=== PATIENT | male | born 1945 | race Caucasian/White ===

== ENCOUNTER 2019-02-15 10:03 | Inpatient (IN) | payer MEDICARE, BC ==
[~2019-02-15 10:03] MED LIST: Acetaminophen 325 MG Tab PO SCH; Lidocaine 1%/Sod Bicarbonate in NS 8.4% 1 ML Syringe IDERM PRN; Pregabalin 25 MG Cap PO SCH; Sodium Chloride 0.9% 10 ML Syringe FLUSH PRN; oxyCODONE ER 10 MG TAB.ER PO SCH
[2019-02-15] MEDS ORDERED: Propofol 200 MG/20 ML SDV ONE (10:27)
[2019-02-15] MEDS ORDERED: fentaNYL 100 MCG/2 ML SDV ONE ×2 (10:27→13:42)
[2019-02-15] MEDS ORDERED: Midazolam 1 MG/ML 2 ML SDV ONE (10:27)
[2019-02-15] MEDS ORDERED: Dexamethasone 4 MG/ML 5 ML MDV ONE (10:28)
[2019-02-15] MEDS ORDERED: Lidocaine 1% 4 ML ONE (10:28)
[2019-02-15] MEDS ORDERED: Ondansetron 4 MG/2 ML SDV ONE (10:28)
[2019-02-15] MEDS ORDERED: ceFAZolin 1 GM Vial ONE ×2 (10:28→10:49)
[2019-02-15] MEDS ORDERED: Bupivacaine 0.25% 10 ML SDV ONE ×2 (10:49→10:51)
[2019-02-15] MEDS ORDERED: Vancomycin 1 GM SDV ONE (10:49)
[2019-02-15] MEDS ORDERED: Iodine/Sodium Iodide 2% Tincture 30 ML Bottle ONE (10:51)
[2019-02-15] MEDS: Lactated Ringers 1,000 ML IV SCH ×2 (11:25→15:49)
[2019-02-15] MEDS ORDERED: Albuterol 0.083% 2.5 MG/3 ML Neb Soln NEB ONE (11:31)
--- NOTE | 2019-02-15 11:31 | PCM.PREANE ---
Preanesthetic Assessment - Anesthesia/Transfusion/Family Hx Anesthesia History: Prior Anesthesia Without Reaction Family History of Anesthesia Reaction: No - Review of Systems General: No Symptoms Pulmonary: Cough (Cold symptoms starting 10 days ago. Feeling much better. Still clears his throat as needed but has done this for years. ) Cardiovascular: No Symptoms (CT in 97, Stents in 2006 and 2011, Stress test done recently unchanged. EF 57-59%. ) Gastrointestinal: No Symptoms Neurological: No Symptoms (Denies back pain, gets burning to his legs that he uses cream for as needed. ) Other: Reports: None - Physical Assessment NPO Status Date: 02/14/19 NPO Status Time: 19:00 Vital Signs: Last Vital Signs Temp 36.8 C 02/15/19 10:25 Pulse 80 02/15/19 10:25 Resp 16 02/15/19 10:25 BP 183/81 H 02/15/19 10:25 Pulse Ox 97 02/15/19 10:25 Height: 1.83 m Weight: 93.44 kg ASA Class: 3 Mental Status: Alert & Oriented x3 Airway Class: Mallampati = 2 Dentition: Reports: Normal Dentition Thyro-Mental Finger Breadths: 2 Mouth Opening Finger Breadths: 3 ROM/Head Extension: Full Lungs: Clear to Auscultation, Normal Respiratory Effort Cardiovascular: Regular Rate, Regular Rhythm - Lab Values: Laboratory Last Values MRSA (PCR) Negative 02/02/19 15:56 - Imaging/EKG Impressions: Rt. BBB/NSR/Septal Infarct Old 62 bpm - Allergies Allergies/Adverse Reactions: Allergies Allergy/AdvReac Type Severity Reaction Status Date / Time VARSHA Inhibitors Allergy Rash Verified 02/12/19 11:38 sulfamethoxazole Allergy Rash Verified 02/12/19 11:38 [From Bactrim] trimethoprim [From Bactrim] Allergy Rash Verified 02/12/19 11:38 - Anesthesia Plan Pre-Op Medication Ordered: Anxiolytic - Acknowledgements Anesthesia Type Planned: Spinal Pt an Appropriate Candidate for the Planned Anesthesia: Yes Alternatives and Risks of Anesthesia Discussed w Pt/Guardian: Yes Pt/Guardian Understands and Agrees with Anesthesia Plan: Yes PreAnesthesia Questionnaire HEENT History: Reports: Hard of Hearing, Impaired Vision, Other (See Below) Other HEENT History: Bilateral hearing aides Cardiovascular History: Reports: CAD, High Cholesterol, Hypertension, CT, Stents Respiratory History: Reports: None Gastrointestinal History: Reports: Hemorrhoids Genitourinary History: Reports: None Musculoskeletal History: Reports: Arthritis Neurological History: Reports: None Psychiatric History: Reports: None Endocrine/Metabolic History: Reports: None Hematologic History: Reports: None Immunologic History: Reports: None Oncologic (Cancer) History: Reports: None Dermatologic History: Reports: None - Past Surgical History Other Cardiovascular Surgeries/Procedures: Angiogram Respiratory Surgical History: Reports: None GI Surgical History: Reports: Appendectomy, Colonoscopy, Other (See Below) Other GI Surgeries/Procedures: Hemorrhoidectomy Male Surgical History: Reports: None Endocrine Surgical History: Reports: None Neurological Surgical History: Reports: None Musculoskeletal Surgical History: Reports: None Oncologic Surgical History: Reports: None Dermatological Surgical History: Reports: None - SUBSTANCE USE Smoking Status *Q: Former Smoker Tobacco Use Within Last Twelve Months: No Second Hand Smoke Exposure: No Days Per Week of Alcohol Use: 2 Number of Drinks Per Day: 2 Total Drinks Per Week: 4 Recreational Drug Use History: No - HOME MEDS Home Medications: Home Meds Aspirin [Halfprin] 81 mg PO DAILY 02/12/19 [History] Cholecalciferol (Vitamin D3) [Vitamin D3] 5,000 unit PO DAILY 02/12/19 [History] Folic Acid 1 mg PO DAILY 02/12/19 [History] Multivitamin [Multi-Vitamin Daily] 1 tab PO DAILY 02/12/19 [History] Nitroglycerin [Nitrostat] 0.4 mg SL ASDIRECTED PRN 02/12/19 [History] Selenium Sulfide 1 applic TP ASDIRECTED PRN 02/12/19 [History] atorvaSTATin [Lipitor] 40 mg PO BEDTIME 02/12/19 [History] - CURRENT (IN HOUSE) MEDS Current Meds: Current Medications Acetaminophen (Tylenol) 975 mg PO ONETIME [place] Stop: 02/15/19 23:00 Last Admin: 02/15/19 11:22 Dose: 975 mg Hydrocodone Bitart/Acetaminophen ([place] 325-5 Mg) 1 - 2 tab PO Q4H PRN PRN Reason: Pain Aspirin (Ecotrin) 325 mg PO BID [place] Bisacodyl (Dulcolax) 5 mg PO DAILY PRN PRN Reason: Constipation Morphine Sulfate 8 mg/Epinephrine HCl 0.3 mg/Cefuroxime Sodium 750 mg/Ketorolac Tromethamine 30 mg/Sodium Chloride 27.9 ml 0 mg .XX ONETIME ONE Stop: 02/15/19 12:31 Cyclobenzaprine HCl (Flexeril) 5 mg PO BID PRN PRN Reason: Spasms Docusate Sodium (Colace) 100 mg PO BID [place] Famotidine (Pepcid) 20 mg PO Q12H [facility] Lactated Ringer's (Ringers, Lactated) 1,000 mls @ 125 mls/hr IV ASDIRECTED [facility] Stop: 02/15/19 23:00 Cefazolin Sodium/Dextrose 2 gm (/ Premix) 50 mls @ 100 mls/hr IV Q8H [facility] Stop: 02/16/19 03:59 Ketorolac Tromethamine (Toradol) 15 mg IVPUSH Q6H PRN PRN Reason: Pain Lidocaine/Sodium Bicarbonate (Buffered Lidocaine 1% In Ns 8.4%) 0.25 ml IDERM ONETIME PRN PRN Reason: Prior to IV Start Stop: 02/15/19 23:00 Magnesium Hydroxide (Milk Of Magnesia) 30 ml PO BID PRN PRN Reason: Constipation Morphine Sulfate (Morphine) 2 mg IVPUSH Q2H PRN PRN Reason: Breakthrough Pain Naloxone HCl (Narcan) 0.1 mg IVPUSH Q5M PRN PRN Reason: Oversedation Ondansetron HCl (Zofran) 4 mg IVPUSH Q6H PRN PRN Reason: Nausea/Vomiting Oxycodone HCl (Oxycontin) 10 mg PO ONETIME [facility] Stop: 02/15/19 23:00 Last Admin: 02/15/19 11:21 Dose: 10 mg Pregabalin (Lyrica) 50 mg PO ONETIME [facility] Stop: 02/15/19 14:00 Last Admin: 02/15/19 11:22 Dose: 50 mg Senna (Senna) 8.6 mg PO BID PRN PRN Reason: Constipation Sodium Chloride (Saline Flush) 10 ml FLUSH ASDIRECTED PRN PRN Reason: Keep Vein Open Stop: 02/15/19 23:00 Discontinued Medications Bupivacaine HCl (Sensorcaine-Mpf 0.25%) Confirm Administered Dose 30 ml .ROUTE .STK-MED ONE Stop: 02/15/19 10:50 Bupivacaine HCl (Sensorcaine-Mpf 0.25%) Confirm Administered Dose 30 ml .ROUTE .STK-MED ONE Stop: 02/15/19 10:52 Cefazolin Sodium (Ancef) Confirm Administered Dose 2 gm .ROUTE .STK-MED ONE Stop: 02/15/19 10:29 Cefazolin Sodium (Ancef) Confirm Administered Dose 2 gm .ROUTE .STK-MED ONE Stop: 02/15/19 10:50 Dexamethasone (Dexamethasone) Confirm Administered Dose 20 mg .ROUTE .STK-MED ONE Stop: 02/15/19 10:29 Fentanyl (Sublimaze) Confirm Administered Dose 100 mcg .ROUTE .STK-MED ONE Stop: 02/15/19 10:28 Lidocaine HCl (Xylocaine-Mpf 1%) Confirm Administered Dose 4 mls @ as directed .ROUTE .STK-MED ONE Stop: 02/15/19 10:29 Iodine (Iodine 2% Mild Tincture) Confirm Administered Dose 30 ml .ROUTE .STK- MED ONE Stop: 02/15/19 10:52 Midazolam HCl (Versed 1 Mg/Ml) Confirm Administered Dose 2 mg .ROUTE .STK-MED ONE Stop: 02/15/19 10:28 Ondansetron HCl (Zofran) Confirm Administered Dose 4 mg .ROUTE .STK-MED ONE Stop: 02/15/19 10:29 Propofol (Diprivan 20 Ml) Confirm Administered Dose 600 mg .ROUTE .STK-MED ONE Stop: 02/15/19 10:28 Tranexamic Acid (Cyklokapron) Confirm Administered Dose 1,000 mg .ROUTE .STK- MED ONE Stop: 02/15/19 10:50 Vancomycin HCl (Vancomycin) Confirm Administered Dose 1 gm .ROUTE .STK-MED ONE Stop: 02/15/19 10:50
[2019-02-15] MEDS ORDERED: Morphine 8 MG, EPINEPHrine 0.3 MG, Cefuroxime 750 MG, Ketorolac 30 MG, Sodium Chloride ... ONE ×5 (12:30)
--- NOTE | 2019-02-15 12:46 | PCM.CONS ---
H&P History of Present Illness - General Date of Service: 02/15/19 Admit Problem/Dx: Admission Diagnosis/Problem Admission Diagnosis/Problem Osteoarthritis of hip Source of Information: Patient, Old Records, Provider, RN, RN Notes Reviewed History Limitations: Reports: No Limitations - History of Present Illness Initial Comments - Free Text/Narative: Smith Caceres is a 73 yo male patient of Dr. Humphrey who is post-operative day 0 of right YESSY. Hospital medicine was consulted for post-operative medical care of the following listed medical conditions. At this time he is resting comfortably in bed. Pain is controlled. He denies any chest pain, shortness of breath, palpitations, nausea, or vomiting. He carries a history of: CAD with stent placement, HLD, HTN, chronic low back pain, prior myocardial infarction, hemorrhoids, arthritis. He is a former smoker. He is a full code. His primary care provider is Dr. Zapata. Right Hip Pain Score (Numeric/FACES): 2 - Related Data Allergies/Adverse Reactions: Allergies Allergy/AdvReac Type Severity Reaction Status Date / Time VARSHA Inhibitors Allergy Rash Verified 02/12/19 11:38 sulfamethoxazole Allergy Rash Verified 02/12/19 11:38 [From Bactrim] trimethoprim [From Bactrim] Allergy Rash Verified 02/12/19 11:38 Home Medications: Home Meds Aspirin [Halfprin] 81 mg PO DAILY 02/12/19 [History] Cholecalciferol (Vitamin D3) [Vitamin D3] 5,000 unit PO DAILY 02/12/19 [History] Folic Acid 1 mg PO DAILY 02/12/19 [History] Multivitamin [Multi-Vitamin Daily] 1 tab PO DAILY 02/12/19 [History] Nitroglycerin [Nitrostat] 0.4 mg SL ASDIRECTED PRN 02/12/19 [History] Selenium Sulfide 1 applic TP ASDIRECTED PRN 02/12/19 [History] atorvaSTATin [Lipitor] 40 mg PO BEDTIME 02/12/19 [History] Past Medical History HEENT History: Reports: Hard of Hearing, Impaired Vision, Other (See Below) Other HEENT History: Bilateral hearing aides Cardiovascular History: Reports: CAD, High Cholesterol, Hypertension, [place], Stents Respiratory History: Reports: None Gastrointestinal History: Reports: Hemorrhoids Genitourinary History: Reports: None Musculoskeletal History: Reports: Arthritis Other Musculoskeletal History: Lumbar back pain Neurological History: Reports: None Psychiatric History: Reports: None Endocrine/Metabolic History: Reports: None Hematologic History: Reports: None Immunologic History: Reports: None Oncologic (Cancer) History: Reports: None Dermatologic History: Reports: None - Past Surgical History Other Cardiovascular Surgeries/Procedures: Angiogram Respiratory Surgical History: Reports: None GI Surgical History: Reports: Appendectomy, Colonoscopy, Other (See Below) Other GI Surgeries/Procedures: Hemorrhoidectomy Male Surgical History: Reports: None Endocrine Surgical History: Reports: None Neurological Surgical History: Reports: None Musculoskeletal Surgical History: Reports: None Oncologic Surgical History: Reports: None Dermatological Surgical History: Reports: None Social & Family History - Tobacco Use Smoking Status *Q: Former Smoker Used Tobacco, but Quit: Yes Month/Year Tobacco Last Used: 30 years ago Second Hand Smoke Exposure: No - Caffeine Use Caffeine Use: Reports: Coffee, Soda - Alcohol Use Days Per Week of Alcohol Use: 2 Number of Drinks Per Day: 2 Total Drinks Per Week: 4 - Recreational Drug Use Recreational Drug Use: No Drug Use in Last 12 Months: No H&P Review of Systems - Review of Systems: Review Of Systems: See Below General: Reports: No Symptoms. Denies: Fever, Chills HEENT: Reports: No Symptoms. Denies: Headaches, Sore Throat Pulmonary: Reports: No Symptoms. Denies: Shortness of Breath, Wheezing, Pleuritic Chest Pain, Cough, Sputum Cardiovascular: Reports: No Symptoms. Denies: Chest Pain, Palpitations, Edema, Lightheadedness Gastrointestinal: Reports: No Symptoms. Denies: Abdominal Pain, Constipation, Diarrhea, Nausea, Vomiting Genitourinary: Reports: No Symptoms. Denies: Pain Musculoskeletal: Reports: Leg Pain Skin: Reports: No Symptoms. Denies: Cyanosis Psychiatric: Reports: No Symptoms. Denies: Confusion Neurological: Reports: No Symptoms Hematologic/Lymphatic: Reports: No Symptoms Immunologic: Reports: No Symptoms Exam - Exam Exam: See Below - Vital Signs Vital Signs: Last Vital Signs Temp 98.3 F 02/15/19 10:25 Pulse 80 02/15/19 10:25 Resp 16 02/15/19 10:25 BP 183/81 H 02/15/19 10:25 Pulse Ox 97 02/15/19 10:25 Weight: 206 lb - Exam Quality Assessment: DVT Prophylaxis General: Alert, Oriented, Cooperative. No: Mild Distress HEENT: Conjunctiva Clear, EACs Clear, EOMI, Hearing Intact, Mucosa Moist & [place] , Nares Patent, Posterior Pharynx Clear, Pupils Equal, Pupils Reactive Neck: Supple, Trachea Midline Lungs: Clear to Auscultation, Normal Respiratory Effort Cardiovascular: Regular Rate, Regular Rhythm GI/Abdominal Exam: Normal Bowel Sounds, Soft, Non-Tender, No Distention, No Abnormal Bruit (Male) Exam: Deferred Rectal (Males) Exam: Deferred Back Exam: Normal Inspection, Full Range of Motion Extremities: No Pedal Edema, Normal Capillary Refill, Leg Pain, Limited Range of Motion, Other (Bandage in place on right leg. Bandage is dry and intact. Cooling pack in place. ) Peripheral Pulses: 3+: Radial (L), Radial (R), Dorsalis Pedis (L), Dorsalis Pedis (R) Skin: Warm, Dry, Intact Neurological: Cranial Nerves Intact (grossly) Neuro Extensive - Mental Status: Alert, Oriented x3, Normal Mood/Affect Psychiatric: Alert, Normal Affect, Normal Mood Consult PN Assessment/Plan POD#: 0 Procedures: Procedures DRAIN/INJ JOINT/BURSA W/O US (08/28/18) US EXAM ABDO BACK WALL COMP (07/01/18) (1) S/P total hip arthroplasty SNOMED Code(s): 226687612729, 822179446079 Code(s): Z96.649 - PRESENCE OF UNSPECIFIED ARTIFICIAL HIP JOINT Priority: High Current Visit: Yes Qualifiers: Laterality: right Qualified Code(s): Z96.641 - Presence of right artificial hip joint (2) Osteoarthritis SNOMED Code(s): 732701331 Code(s): M19.90 - UNSPECIFIED OSTEOARTHRITIS, UNSPECIFIED SITE Priority: High Current Visit: Yes Qualifiers: Osteoarthritis location: hip Osteoarthritis type: primary Laterality: right Qualified Code(s): M16.11 - Unilateral primary osteoarthritis, right hip (3) CAD (coronary artery disease) SNOMED Code(s): 09810997 Code(s): I25.10 - ATHSCL HEART DISEASE OF [place] CORONARY ARTERY W/O ANG PCTRS Priority: Medium Current Visit: No Qualifiers: Coronary Disease-Associated Artery/Lesion type: unspecified vessel or lesion type [place] vs. transplanted heart: [place] heart Associated angina: angina presence unspecified Qualified Code(s): I25.10 - Atherosclerotic heart disease of [place] coronary artery without angina pectoris (4) History of [place] (myocardial infarction) SNOMED Code(s): 328105921 Code(s): I25.2 - OLD MYOCARDIAL INFARCTION Priority: Medium Current Visit : No (5) HLD (hyperlipidemia) SNOMED Code(s): 91946580 Code(s): E78.5 - HYPERLIPIDEMIA, UNSPECIFIED Priority: Low Current Visit : No Qualifiers: Hyperlipidemia type: unspecified Qualified Code(s): E78.5 - Hyperlipidemia , unspecified (6) HTN (hypertension) SNOMED Code(s): 18250215 Code(s): I10 - ESSENTIAL (PRIMARY) HYPERTENSION Priority: Medium Current Visit: No Qualifiers: Hypertension type: unspecified Qualified Code(s): I10 - Essential (primary ) hypertension (7) Low back pain SNOMED Code(s): 951159959 Code(s): M54.5 - LOW BACK PAIN Priority: Low Current Visit: No Qualifiers: Chronicity: chronic Back pain laterality: unspecified Sciatica laterality : sciatica laterality unspecified Problem List Initiated/Reviewed/Updated: Yes Plan: I/P: Acute: S/P right total hip arthroplasty - post-operative day 0 -DVT prophylaxis and pain management per primary care team -PT/OT -IS/RT -Monitor oxygen saturation -Titrate oxygen as needed -Home medications reviewed -Vital signs stable -Monitor labs -Pre-operative Hgb was 14.9 -Pre-operative GFR was 74 -Negative stress test on 02/10/19 Osteoarthritis of right hip -Pain management per primary care team Post-operative HTN -Reported in post-op -Improved once on floor -Continue to monitor -Reports borderline HTN in past Chronic: CAD with stent placement HLD HTN chronic low back pain prior myocardial infarction hemorrhoids arthritis Plan: CM for discharge planning GI prophylaxis Home medications as indicated Other orders as listed above Routine AM labs He is a full code. His PCP is Dr. Zapata Thank you for allowing us to participate in the care of this patient!! Requesting Provider: Dr. Humphrey Date Consult Requested: 02/15/19 Patient History Reviewed: Yes Admission H&P Reviewed: Yes Time Spent (in minutes): 40
[2019-02-15] MEDS ORDERED: Acetaminophen/HYDROcodone 325-5 MG Tab PO PRN (13:00)
[2019-02-15] MEDS ORDERED: Morphine 2 MG/ML Syringe IVPUSH PRN (13:00)
[2019-02-15] MEDS ORDERED: Cyclobenzaprine 10 MG Tab PO PRN (13:00)
[2019-02-15] MEDS ORDERED: Ondansetron 4 MG/2 ML SDV IVPUSH PRN ×2 (13:00→13:58)
[2019-02-15] MEDS ORDERED: Ketorolac 15 MG/ML SDV IVPUSH PRN (13:00)
[2019-02-15] MEDS ORDERED: Sennosides 8.6 MG Tab PO PRN (13:00)
[2019-02-15] MEDS ORDERED: Bisacodyl 5 MG Tab PO PRN (13:00)
[2019-02-15] MEDS ORDERED: Naloxone 0.4 MG/ML SDV IVPUSH PRN (13:00)
[2019-02-15] MEDS ORDERED: Magnesium Hydroxide 400 MG/5 ML Susp 30 ML Cup PO PRN (13:00)
[2019-02-15] MEDS ORDERED: Lactated Ringers 1,000 ML ONE (13:09)
[2019-02-15] MEDS ORDERED: Lidocaine 1% 2 ML ONE (13:10)
[2019-02-15] MEDS ORDERED: Rocuronium 50 MG/5 ML Vial ONE (13:10)
[2019-02-15] MEDS ORDERED: Ketamine 500 mg/10 ML MDV ONE (13:20)
[2019-02-15] MEDS ORDERED: ePHEDrine/Normal Saline 25 MG/5 ML Syringe ONE (13:27)
[2019-02-15] MEDS ORDERED: HYDROmorphone 0.5 MG/0.5 ML Syringe IVPUSH PRN (13:58)
[2019-02-15] MEDS ORDERED: fentaNYL 100 MCG/2 ML SDV IVPUSH PRN (13:58)
[2019-02-15] MEDS ORDERED: Phenylephrine/Normal Saline 100 MCG/ML 10 ML Syringe ONE (14:00)
[2019-02-15] MEDS ORDERED: Neostigmine Methylsulfate 1 MG/ML 5 ML Syringe ONE (14:00)
[2019-02-15] MEDS ORDERED: Ketorolac 30 MG/ML SDV ONE (14:00)
[2019-02-15] MEDS ORDERED: Esmolol 100 MG/10 ML SDV ONE (14:32)
[2019-02-15] MEDS ORDERED: Nitroglycerin 0.4 MG Tab.SL SL PRN (14:35)
[2019-02-15] MEDS ORDERED: SELENIUM SULFIDE TP PRN (14:35)
--- NOTE | 2019-02-15 14:59 | PCM.POSTAN ---
POST ANESTHESIA ASSESSMENT - MENTAL STATUS Mental Status: Alert, Oriented - VITAL SIGNS Vital Signs: Last Vital Signs 1446 181/88 82 10 100% 98.8F - RESPIRATORY Respiratory Status: Respiratory Rate WNL, Airway Patent, O2 Saturation Stable, Supplemental Oxygen - CARDIOVASCULAR CV Status: Pulse Rate WNL, Blood Pressure Stable - GASTROINTESTINAL GI Status: No Symptoms - PAIN Pain Score: 0 - POST OP HYDRATION Hydration Status: Adequate & Stable
--- NOTE | 2019-02-15 16:46 | CR ---
Pelvis and right hip: AP view of the pelvis was obtained as well as frog-leg lateral view of the right hip. Comparison: No previous hip or pelvis study. Soft tissue air is noted around recently placed right hip prosthesis. Mild degenerative change is partially seen within the visualized lower lumbar spine. Moderate joint space narrowing is seen superiorly within the left hip. No acute bony abnormality is seen. Impression: 1. Recently placed right hip prosthesis. 2. Other findings as noted above which are nonacute. Diagnostic code #2
[2019-02-15] MEDS ORDERED: Rosuvastatin 10 MG Tab PO SCH (21:00)
[2019-02-15] MEDS: ceFAZolin 2 GM in Premix Bag 1 BAG IV SCH (21:02)
[2019-02-15] MEDS: Famotidine 20 MG Tab PO SCH (21:09)
[2019-02-15] MEDS: Docusate Sodium 100 MG Cap PO SCH (21:09)
[2019-02-16] MEDS: ceFAZolin 2 GM in Premix Bag 1 BAG IV SCH ×2 (04:28→12:34)
--- NOTE | 2019-02-16 06:40 | PCM.CONSN ---
- General Info Date of Service: 02/16/19 Admission Dx/Problem (Free Text): Admission Diagnosis/Problem Admission Diagnosis/Problem Osteoarthritis of hip Functional Status: Reports: Pain Controlled, Tolerating Diet, Ambulating, Urinating, Incentive Spirometry. Denies: New Symptoms - Review of Systems General: Reports: No Symptoms. Denies: Fever, Weakness, Fatigue, Malaise, Chills HEENT: Reports: No Symptoms. Denies: Headaches, Sore Throat Pulmonary: Reports: No Symptoms. Denies: Shortness of Breath, Cough, Sputum, Wheezing Cardiovascular: Reports: No Symptoms. Denies: Chest Pain, Palpitations Gastrointestinal: Reports: No Symptoms. Denies: Abdominal Pain, Constipation, Diarrhea, Nausea, Vomiting Genitourinary: Reports: No Symptoms. Denies: Pain Musculoskeletal: Reports: Leg Pain Skin: Reports: No Symptoms. Denies: Cyanosis Neurological: Reports: No Symptoms. Denies: Confusion Psychiatric: Reports: No Symptoms - Patient Data Vitals - Most Recent: Last Vital Signs Temp 98.2 F 02/16/19 04:04 Pulse 78 02/16/19 04:04 Resp 16 02/16/19 04:04 BP 126/60 02/16/19 04:04 Pulse Ox 99 02/16/19 04:04 Weight - Most Recent: 213 lb 9 oz I&O - Last 24 Hours: Intake & Output 02/15/19 02/15/19 02/16/19 14:59 22:59 06:59 Intake Total 700 1400 Output Total 400 Balance 300 1400 Lab Results Last 24 Hours: Laboratory Results - last 24 hr 02/15/19 02/16/19 02/16/19 Range/Units 11:26 05:00 05:00 WBC 18.08 H (4.23-9.07) K/mm3 RBC 3.93 L (4.63-6.08) M/mm3 Hgb 11.8 L (13.7-17.5) gm/dl Hct 36.5 L (40.1-51.0) % MCV 92.9 H (79.0-92.2) fl MCH 30.0 (25.7-32.2) pg MCHC 32.3 (32.2-35.5) g/dl RDW Std Deviation 45.1 H (35.1-43.9) fL Plt Count 218 (163-337) K/mm3 MPV 10.2 (9.4-12.3) fl Sodium 137 (136-145) mEq/L Potassium 4.3 (3.5-5.1) mEq/L Chloride 103 (98-107) mEq/L Carbon Dioxide 26 (21-32) mEq/L Anion Gap 12.3 (5-15) BUN 25 H (7-18) mg/dL Creatinine 1.4 H (0.7-1.3) mg/dL Est Cr Clr Drug Dosing 50.81 mL/min Estimated GFR (MDRD) 50 (>60) mL/min BUN/Creatinine Ratio 17.9 (14-18) Glucose 167 H (83-115) mg/dL Calcium 8.7 (8.5-10.1) mg/dL Total Bilirubin 0.8 (0.2-1.0) mg/dL AST 31 (15-37) U/L ALT 32 (16-63) U/L Alkaline Phosphatase 78 (46-116) U/L Total Protein 6.3 L (6.4-8.2) g/dl Albumin 3.4 (3.4-5.0) g/dl Globulin 2.9 gm/dL Albumin/Globulin Ratio 1.2 (1-2) Blood Type B POSITIVE Gel Antibody Screen Negative Med Orders - Current: Current Medications Hydrocodone Bitart/Acetaminophen ([place] 325-5 Mg) 1 - 2 tab PO Q4H PRN PRN Reason: Pain Last Admin: 02/16/19 04:26 Dose: 2 tab Aspirin (Ecotrin) 325 mg PO BID [facility] Bisacodyl (Dulcolax) 5 mg PO DAILY PRN PRN Reason: Constipation Cholecalciferol (Vitamin D3) 5,000 unit PO DAILY [facility] Cyclobenzaprine HCl (Flexeril) 5 mg PO BID PRN PRN Reason: Spasms Last Admin: 02/15/19 21:08 Dose: 5 mg Docusate Sodium (Colace) 100 mg PO BID [facility] Last Admin: 02/15/19 21:09 Dose: 100 mg Famotidine (Pepcid) 20 mg PO Q12H [facility] Last Admin: 02/15/19 21:09 Dose: 20 mg Folic Acid (Folic Acid) 1 mg PO DAILY [facility] Cefazolin Sodium/Dextrose 2 gm (/ Premix) 50 mls @ 100 mls/hr IV Q8H [facility] Stop: 02/16/19 12:29 Last Admin: 02/16/19 04:28 Dose: 100 mls/hr Ketorolac Tromethamine (Toradol) 15 mg IVPUSH Q6H PRN PRN Reason: Pain Last Admin: 02/15/19 21:10 Dose: 15 mg Magnesium Hydroxide (Milk Of Magnesia) 30 ml PO BID PRN PRN Reason: Constipation Morphine Sulfate (Morphine) 2 mg IVPUSH Q2H PRN PRN Reason: Breakthrough Pain Multivitamins (Thera) 1 each PO DAILY [facility] Naloxone HCl (Narcan) 0.1 mg IVPUSH Q5M PRN PRN Reason: Oversedation Nitroglycerin (Nitrostat) 0.4 mg SL ASDIRECTED PRN PRN Reason: Chest Pain Ondansetron HCl (Zofran) 4 mg IVPUSH Q6H PRN PRN Reason: Nausea/Vomiting Rosuvastatin Calcium (Crestor) 10 mg PO BEDTIME [facility] Last Admin: 02/15/19 21:08 Dose: 10 mg Senna (Senna) 8.6 mg PO BID PRN PRN Reason: Constipation Discontinued Medications Acetaminophen (Tylenol) 975 mg PO ONETIME [facility] Stop: 02/15/19 23:00 Last Admin: 02/15/19 11:22 Dose: 975 mg Albuterol (Proventil Neb Soln) 2.5 mg NEB ONETIME ONE Stop: 02/15/19 11:32 Last Admin: 02/15/19 15:51 Dose: Not Given Bupivacaine HCl (Sensorcaine-Mpf 0.25%) Confirm Administered Dose 30 ml .ROUTE .STK-MED ONE Stop: 02/15/19 10:50 Last Admin: 02/15/19 14:16 Dose: 30 ml Bupivacaine HCl (Sensorcaine-Mpf 0.25%) Confirm Administered Dose 30 ml .ROUTE .STK-MED ONE Stop: 02/15/19 10:52 Cefazolin Sodium (Ancef) Confirm Administered Dose 2 gm .ROUTE .STK-MED ONE Stop: 02/15/19 10:29 Last Admin: 02/15/19 14:13 Dose: 2 gm Cefazolin Sodium (Ancef) Confirm Administered Dose 2 gm .ROUTE .STK-MED ONE Stop: 02/15/19 10:50 Morphine Sulfate 8 mg/Epinephrine HCl 0.3 mg/Cefuroxime Sodium 750 mg/Ketorolac Tromethamine 30 mg/Sodium Chloride 27.9 ml 0 mg .XX ONETIME ONE Stop: 02/15/19 12:31 Last Admin: 02/15/19 14:14 Dose: 788.3 mg Dexamethasone (Dexamethasone) Confirm Administered Dose 20 mg .ROUTE .STK-MED ONE Stop: 02/15/19 10:29 Ephedrine Sulfate (Ephedrine In Ns) Confirm Administered Dose 25 mg .ROUTE .STK- MED ONE Stop: 02/15/19 13:28 Esmolol HCl (Esmolol) Confirm Administered Dose 100 mg .ROUTE .STK-MED ONE Stop: 02/15/19 14:33 Fentanyl (Sublimaze) Confirm Administered Dose 100 mcg .ROUTE .STK-MED ONE Stop: 02/15/19 10:28 Fentanyl (Sublimaze) Confirm Administered Dose 100 mcg .ROUTE .STK-MED ONE Stop: 02/15/19 13:43 Fentanyl (Sublimaze) 50 mcg IVPUSH Q5M PRN PRN Reason: Pain Stop: 02/15/19 16:00 Glycopyrrolate () Confirm Administered Dose 1 mg .ROUTE .STK-MED ONE Stop: 02/15/19 14:01 Hydromorphone HCl (Dilaudid) 0.5 mg IVPUSH Q10M PRN PRN Reason: Pain (severe 7-10) Stop: 02/15/19 16:00 Lactated Ringer's (Ringers, Lactated) 1,000 mls @ 125 mls/hr IV ASDIRECTED [place] Stop: 02/15/19 23:00 Last Admin: 02/15/19 15:49 Dose: 125 mls/hr Lidocaine HCl (Xylocaine-Mpf 1%) Confirm Administered Dose 4 mls @ as directed .ROUTE .STK-MED ONE Stop: 02/15/19 10:29 Lactated Ringer's (Ringers, Lactated) Confirm Administered Dose 1,000 mls @ as directed .ROUTE .STK-MED ONE Stop: 02/15/19 13:10 Lidocaine HCl (Xylocaine-Mpf 1%) Confirm Administered Dose 2 mls @ as directed .ROUTE .STK-MED ONE Stop: 02/15/19 13:11 Iodine (Iodine 2% Mild Tincture) Confirm Administered Dose 30 ml .ROUTE .STK- MED ONE Stop: 02/15/19 10:52 Last Admin: 02/15/19 14:10 Dose: 18 ml Ketamine HCl (Ketalar) Confirm Administered Dose 500 mg .ROUTE .STK-MED ONE Stop: 02/15/19 13:21 Ketorolac Tromethamine (Toradol) Confirm Administered Dose 30 mg .ROUTE .STK- MED ONE Stop: 02/15/19 14:01 Lidocaine/Sodium Bicarbonate (Buffered Lidocaine 1% In Ns 8.4%) 0.25 ml IDERM ONETIME PRN PRN Reason: Prior to IV Start Stop: 02/15/19 23:00 Last Admin: 02/15/19 11:25 Dose: 0.25 ml Midazolam HCl (Versed 1 Mg/Ml) Confirm Administered Dose 2 mg .ROUTE .STK-MED ONE Stop: 02/15/19 10:28 Neostigmine Methylsulfate (Neostigmine) Confirm Administered Dose 5 mg .ROUTE .STK-MED ONE Stop: 02/15/19 14:01 Non-Formulary Medication (Selenium Sulfide [Selenium Sulfide]) 1 applic TP ASDIRECTED PRN PRN Reason: Dry Scalp Ondansetron HCl (Zofran) Confirm Administered Dose 4 mg .ROUTE .STK-MED ONE Stop: 02/15/19 10:29 Ondansetron HCl (Zofran) 4 mg IVPUSH ONETIME PRN PRN Reason: Nausea/Vomiting Stop: 02/15/19 16:00 Oxycodone HCl (Oxycontin) 10 mg PO ONETIME [place] Stop: 02/15/19 23:00 Last Admin: 02/15/19 11:21 Dose: 10 mg Phenylephrine HCl (Phenylephrine In Ns 100 Mcg/Ml) Confirm Administered Dose 1 mg .ROUTE .STK-MED ONE Stop: 02/15/19 14:01 Pregabalin (Lyrica) 50 mg PO ONETIME [place] Stop: 02/15/19 14:00 Last Admin: 02/15/19 11:22 Dose: 50 mg Propofol (Diprivan 20 Ml) Confirm Administered Dose 600 mg .ROUTE .STK-MED ONE Stop: 02/15/19 10:28 Rocuronium [place] (Zemuron) Confirm Administered Dose 50 mg .ROUTE .STK-MED ONE Stop: 02/15/19 13:11 Sodium Chloride (Saline Flush) 10 ml FLUSH ASDIRECTED PRN PRN Reason: Keep Vein Open Stop: 02/15/19 23:00 Tranexamic Acid (Cyklokapron) Confirm Administered Dose 1,000 mg .ROUTE .STK- MED ONE Stop: 02/15/19 10:50 Last Admin: 02/15/19 14:16 Dose: 1,000 mg Vancomycin HCl (Vancomycin) Confirm Administered Dose 1 gm .ROUTE .STK-MED ONE Stop: 02/15/19 10:50 Last Admin: 02/15/19 14:16 Dose: 1 gm - Exam Quality Assessment: DVT Prophylaxis General: Alert, Oriented, Cooperative HEENT: Pupils Equal, Pupils Reactive, EOMI, Mucous Membr. Moist/[place] Neck: Supple, Trachea Midline Lungs: Clear to Auscultation, Normal Respiratory Effort Cardiovascular: Regular Rate, Regular Rhythm GI/Abdominal Exam: Normal Bowel Sounds, Soft, Non-Tender, No Organomegaly, No Distention, No Abnormal Bruit (Male) Exam: Deferred Back Exam: Normal Inspection, Full Range of Motion Extremities: No Pedal Edema, Normal Capillary Refill, Leg Pain, Limited Range of Motion, Other (Bandage in place on right leg. Cooling pack in place. ) Peripheral Pulses: 2+: Radial (L), Radial (R), Dorsalis Pedis (L), Dorsalis Pedis (R) Skin: Warm, Dry, Intact Wound/Incisions: Dressing Dry and Intact Neurological: No New Focal Deficit Psy/Mental Status: Alert, Normal Affect, Normal Mood Consult PN Assessment/Plan POD#: 1 Procedures: Procedures DRAIN/INJ JOINT/BURSA W/O US (08/28/18) US EXAM ABDO BACK WALL COMP (07/01/18) (1) S/P total hip arthroplasty SNOMED Code(s): 807804618524, 511332236951 Code(s): Z96.649 - PRESENCE OF UNSPECIFIED ARTIFICIAL HIP JOINT Priority: High Current Visit: Yes Qualifiers: Laterality: right Qualified Code(s): Z96.641 - Presence of right artificial hip joint (2) Osteoarthritis SNOMED Code(s): 374120504 Code(s): M19.90 - UNSPECIFIED OSTEOARTHRITIS, UNSPECIFIED SITE Priority: High Current Visit: Yes Qualifiers: Osteoarthritis location: hip Osteoarthritis type: primary Laterality: right Qualified Code(s): M16.11 - Unilateral primary osteoarthritis, right hip (3) CAD (coronary artery disease) SNOMED Code(s): 84932440 Code(s): I25.10 - ATHSCL HEART DISEASE OF [place] CORONARY ARTERY W/O ANG PCTRS Priority: Medium Current Visit: No Qualifiers: Coronary Disease-Associated Artery/Lesion type: unspecified vessel or lesion type [place] vs. transplanted heart: [place] heart Associated angina: angina presence unspecified Qualified Code(s): I25.10 - Atherosclerotic heart disease of [place] coronary artery without angina pectoris (4) History of PR (myocardial infarction) SNOMED Code(s): 217155724 Code(s): I25.2 - OLD MYOCARDIAL INFARCTION Priority: Medium Current Visit : No (5) HLD (hyperlipidemia) SNOMED Code(s): 93811365 Code(s): E78.5 - HYPERLIPIDEMIA, UNSPECIFIED Priority: Low Current Visit : No Qualifiers: Hyperlipidemia type: unspecified Qualified Code(s): E78.5 - Hyperlipidemia , unspecified (6) HTN (hypertension) SNOMED Code(s): 14479607 Code(s): I10 - ESSENTIAL (PRIMARY) HYPERTENSION Priority: Medium Current Visit: No Qualifiers: Hypertension type: unspecified Qualified Code(s): I10 - Essential (primary ) hypertension (7) Low back pain SNOMED Code(s): 945341485 Code(s): M54.5 - LOW BACK PAIN Priority: Low Current Visit: No Qualifiers: Chronicity: chronic Back pain laterality: unspecified Sciatica laterality : sciatica laterality unspecified (8) Acute kidney injury SNOMED Code(s): 76909598, 22953288 Code(s): N17.9 - ACUTE KIDNEY FAILURE, UNSPECIFIED Priority: High Current Visit: Yes Problem List Initiated/Reviewed/Updated: Yes My Orders Last 24 Hours: My Active Orders 02/15/19 15:57 Patient Status [ADT] Routine 02/15/19 21:00 Rosuvastatin [Crestor] 10 mg PO BEDTIME Plan: I/P: Acute: S/P right total hip arthroplasty - post-operative day 1 -DVT prophylaxis and pain management per primary care team -PT/OT -IS/RT -Monitor oxygen saturation -Titrate oxygen as needed -Home medications reviewed -Vital signs stable -Monitor labs -Pre-operative Hgb was 14.9; Now 11.8 -Pre-operative GFR was 74; Now 50 -Pre-operative creatinine was 0.99 now 1.4 -Negative stress test on 02/10/19 Osteoarthritis of right hip -Pain management per primary care team Post-operative HTN, resolved -Reported in post-op -Improved once on floor -Continue to monitor -Reports borderline HTN in past Acute kidney injury -Creatinine 1.4; GFR 50 -Encouraged to push IV fluids -PCP follow-up end of week, early next week. Chronic: CAD with stent placement HLD HTN chronic low back pain prior myocardial infarction hemorrhoids arthritis Plan: Telemetry CM for discharge planning GI prophylaxis Home medications as indicated Other orders as listed above Routine AM labs He is a full code. His PCP is Dr. Zapata Overall from a hospitalist standpoint Smith is doing pretty well. He has been up ambulating and working with therapies. Pain is controlled. He is off of oxygen and has urinated. He has been utilizing his IS. His creatinine was up a bit today and his GFR was down. Discussed this with Dr. Hartmann who recommends pushing fluids and follow-up with PCP at the end of this week or early next week to re-check a BNP, magnesium, and potassium. He was encouraged to continue IV hydration and avoid coffee, etc. He is cleared for discharge pending primary team and PT/OT agreement. Thank you for allowing us to participate in the care of this patient!!
--- NOTE | 2019-02-16 07:34 | PCM48HPAN ---
Post Anesthesia Note - EVALUATION WITHIN 48HRS OF ANESTHETIC Vital Signs in Normal Range: Yes Patient Participated in Evaluation: Yes Respiratory Function Stable: Yes Airway Patent: Yes Cardiovascular Function Stable: Yes Hydration Status Stable: Yes Pain Control Satisfactory: Yes Nausea and Vomiting Control Satisfactory: Yes Mental Status Recovered: Yes Vital Signs: Last Vital Signs Temp 36.8 C 02/16/19 04:04 Pulse 78 02/16/19 04:04 Resp 16 02/16/19 04:04 BP 126/60 02/16/19 04:04 Pulse Ox 99 02/16/19 04:04 - COMMENTS/OBSERVATIONS Free Text/Narrative:: no anesthesia complications noted
[2019-02-16] MEDS: Famotidine 20 MG Tab PO SCH (08:42)
[2019-02-16] MEDS: Docusate Sodium 100 MG Cap PO SCH (08:43)
[2019-02-16] MEDS ORDERED: Aspirin 325 MG Tab.EC PO SCH (09:00)
[2019-02-16] MEDS ORDERED: Cholecalciferol (Vitamin D3) 5,000 UNIT Tab PO SCH (09:00)
[2019-02-16] MEDS ORDERED: Multivitamins,Therapeutic Tab PO SCH (09:00)
[2019-02-16] MEDS ORDERED: Folic Acid 1 MG Tab PO SCH (09:00)
--- NOTE | 2019-02-16 17:35 | PCM.SURGPN ---
- General Info Date of Service: 02/16/19 POD#: 1 Functional Status: Reports: Pain Controlled, Tolerating Diet, Ambulating, Urinating, Incentive Spirometry, Other (The pt states he is doing well.) - Patient Data Vitals - Most Recent: Last Vital Signs Temp 97.6 F 02/16/19 08:43 Pulse 74 02/16/19 12:00 Resp 20 02/16/19 12:00 BP 139/52 L 02/16/19 12:00 Pulse Ox 99 02/16/19 12:00 Weight - Most Recent: 213 lb 9 oz I&O - Last 24 Hours: Intake & Output 02/16/19 02/16/19 02/16/19 06:59 14:59 22:59 Intake Total 1400 360 Balance 1400 360 Lab Results Last 24 Hrs: Laboratory Results - last 24 hr 02/16/19 02/16/19 Range/Units 05:00 05:00 WBC 18.08 H (4.23-9.07) K/mm3 RBC 3.93 L (4.63-6.08) M/mm3 Hgb 11.8 L (13.7-17.5) gm/dl Hct 36.5 L (40.1-51.0) % MCV 92.9 H (79.0-92.2) fl MCH 30.0 (25.7-32.2) pg MCHC 32.3 (32.2-35.5) g/dl RDW Std Deviation 45.1 H (35.1-43.9) fL Plt Count 218 (163-337) K/mm3 MPV 10.2 (9.4-12.3) fl Sodium 137 (136-145) mEq/L Potassium 4.3 (3.5-5.1) mEq/L Chloride 103 (98-107) mEq/L Carbon Dioxide 26 (21-32) mEq/L Anion Gap 12.3 (5-15) BUN 25 H (7-18) mg/dL Creatinine 1.4 H (0.7-1.3) mg/dL Est Cr Clr Drug Dosing 50.81 mL/min Estimated GFR (MDRD) 50 (>60) mL/min BUN/Creatinine Ratio 17.9 (14-18) Glucose 167 H (83-115) mg/dL Calcium 8.7 (8.5-10.1) mg/dL Total Bilirubin 0.8 (0.2-1.0) mg/dL AST 31 (15-37) U/L ALT 32 (16-63) U/L Alkaline Phosphatase 78 (46-116) U/L Total Protein 6.3 L (6.4-8.2) g/dl Albumin 3.4 (3.4-5.0) g/dl Globulin 2.9 gm/dL Albumin/Globulin Ratio 1.2 (1-2) Med Orders - Current: Current Medications Discontinued Medications Acetaminophen (Tylenol) 975 mg PO ONETIME [facility] Stop: 02/15/19 23:00 Last Admin: 02/15/19 11:22 Dose: 975 mg Hydrocodone Bitart/Acetaminophen ([place] 325-5 Mg) 1 - 2 tab PO Q4H PRN PRN Reason: Pain Last Admin: 02/16/19 04:26 Dose: 2 tab Albuterol (Proventil Neb Soln) 2.5 mg NEB ONETIME ONE Stop: 02/15/19 11:32 Last Admin: 02/15/19 15:51 Dose: Not Given Aspirin (Ecotrin) 325 mg PO BID [facility] Last Admin: 02/16/19 08:42 Dose: 325 mg Bisacodyl (Dulcolax) 5 mg PO DAILY PRN PRN Reason: Constipation Bupivacaine HCl (Sensorcaine-Mpf 0.25%) Confirm Administered Dose 30 ml .ROUTE .STK-MED ONE Stop: 02/15/19 10:50 Last Admin: 02/15/19 14:16 Dose: 30 ml Bupivacaine HCl (Sensorcaine-Mpf 0.25%) Confirm Administered Dose 30 ml .ROUTE .STK-MED ONE Stop: 02/15/19 10:52 Cefazolin Sodium (Ancef) Confirm Administered Dose 2 gm .ROUTE .STK-MED ONE Stop: 02/15/19 10:29 Last Admin: 02/15/19 14:13 Dose: 2 gm Cefazolin Sodium (Ancef) Confirm Administered Dose 2 gm .ROUTE .STK-MED ONE Stop: 02/15/19 10:50 Cholecalciferol (Vitamin D3) 5,000 unit PO DAILY [facility] Last Admin: 02/16/19 08:42 Dose: 5,000 unit Morphine Sulfate 8 mg/Epinephrine HCl 0.3 mg/Cefuroxime Sodium 750 mg/Ketorolac Tromethamine 30 mg/Sodium Chloride 27.9 ml 0 mg .XX ONETIME ONE Stop: 02/15/19 12:31 Last Admin: 02/15/19 14:14 Dose: 788.3 mg Cyclobenzaprine HCl (Flexeril) 5 mg PO BID PRN PRN Reason: Spasms Last Admin: 02/15/19 21:08 Dose: 5 mg Dexamethasone (Dexamethasone) Confirm Administered Dose 20 mg .ROUTE .STK-MED ONE Stop: 02/15/19 10:29 Docusate Sodium (Colace) 100 mg PO BID [facility] Last Admin: 02/16/19 08:43 Dose: 100 mg Ephedrine Sulfate (Ephedrine In Ns) Confirm Administered Dose 25 mg .ROUTE .STK- MED ONE Stop: 02/15/19 13:28 Esmolol HCl (Esmolol) Confirm Administered Dose 100 mg .ROUTE .STK-MED ONE Stop: 02/15/19 14:33 Famotidine (Pepcid) 20 mg PO Q12H [facility] Last Admin: 02/16/19 08:42 Dose: 20 mg Fentanyl (Sublimaze) Confirm Administered Dose 100 mcg .ROUTE .STK-MED ONE Stop: 02/15/19 10:28 Fentanyl (Sublimaze) Confirm Administered Dose 100 mcg .ROUTE .STK-MED ONE Stop: 02/15/19 13:43 Fentanyl (Sublimaze) 50 mcg IVPUSH Q5M PRN PRN Reason: Pain Stop: 02/15/19 16:00 Folic Acid (Folic Acid) 1 mg PO DAILY [facility] Last Admin: 02/16/19 08:42 Dose: 1 mg Glycopyrrolate () Confirm Administered Dose 1 mg .ROUTE .STK-MED ONE Stop: 02/15/19 14:01 Hydromorphone HCl (Dilaudid) 0.5 mg IVPUSH Q10M PRN PRN Reason: Pain (severe 7-10) Stop: 02/15/19 16:00 Lactated Ringer's (Ringers, Lactated) 1,000 mls @ 125 mls/hr IV ASDIRECTED [facility] Stop: 02/15/19 23:00 Last Admin: 02/15/19 15:49 Dose: 125 mls/hr Lidocaine HCl (Xylocaine-Mpf 1%) Confirm Administered Dose 4 mls @ as directed .ROUTE .STK-MED ONE Stop: 02/15/19 10:29 Cefazolin Sodium/Dextrose 2 gm (/ Premix) 50 mls @ 100 mls/hr IV Q8H [place] Stop: 02/16/19 12:29 Last Admin: 02/16/19 12:34 Dose: 100 mls/hr Lactated Ringer's (Ringers, Lactated) Confirm Administered Dose 1,000 mls @ as directed .ROUTE .STK-MED ONE Stop: 02/15/19 13:10 Lidocaine HCl (Xylocaine-Mpf 1%) Confirm Administered Dose 2 mls @ as directed .ROUTE .STK-MED ONE Stop: 02/15/19 13:11 Iodine (Iodine 2% Mild Tincture) Confirm Administered Dose 30 ml .ROUTE .STK- MED ONE Stop: 02/15/19 10:52 Last Admin: 02/15/19 14:10 Dose: 18 ml Ketamine HCl (Ketalar) Confirm Administered Dose 500 mg .ROUTE .STK-MED ONE Stop: 02/15/19 13:21 Ketorolac Tromethamine (Toradol) 15 mg IVPUSH Q6H PRN PRN Reason: Pain Last Admin: 02/15/19 21:10 Dose: 15 mg Ketorolac Tromethamine (Toradol) Confirm Administered Dose 30 mg .ROUTE .STK- MED ONE Stop: 02/15/19 14:01 Lidocaine/Sodium Bicarbonate (Buffered Lidocaine 1% In Ns 8.4%) 0.25 ml IDERM ONETIME PRN PRN Reason: Prior to IV Start Stop: 02/15/19 23:00 Last Admin: 02/15/19 11:25 Dose: 0.25 ml Magnesium Hydroxide (Milk Of Magnesia) 30 ml PO BID PRN PRN Reason: Constipation Midazolam HCl (Versed 1 Mg/Ml) Confirm Administered Dose 2 mg .ROUTE .STK-MED ONE Stop: 02/15/19 10:28 Morphine Sulfate (Morphine) 2 mg IVPUSH Q2H PRN PRN Reason: Breakthrough Pain Multivitamins (Thera) 1 each PO DAILY [place] Last Admin: 02/16/19 08:43 Dose: 1 each Naloxone HCl (Narcan) 0.1 mg IVPUSH Q5M PRN PRN Reason: Oversedation Neostigmine Methylsulfate (Neostigmine) Confirm Administered Dose 5 mg .ROUTE .STK-MED ONE Stop: 02/15/19 14:01 Nitroglycerin (Nitrostat) 0.4 mg SL ASDIRECTED PRN PRN Reason: Chest Pain Non-Formulary Medication (Selenium Sulfide [Selenium Sulfide]) 1 applic TP ASDIRECTED PRN PRN Reason: Dry Scalp Ondansetron HCl (Zofran) Confirm Administered Dose 4 mg .ROUTE .STK-MED ONE Stop: 02/15/19 10:29 Ondansetron HCl (Zofran) 4 mg IVPUSH Q6H PRN PRN Reason: Nausea/Vomiting Ondansetron HCl (Zofran) 4 mg IVPUSH ONETIME PRN PRN Reason: Nausea/Vomiting Stop: 02/15/19 16:00 Oxycodone HCl (Oxycontin) 10 mg PO ONETIME [place] Stop: 02/15/19 23:00 Last Admin: 02/15/19 11:21 Dose: 10 mg Phenylephrine HCl (Phenylephrine In Ns 100 Mcg/Ml) Confirm Administered Dose 1 mg .ROUTE .STK-MED ONE Stop: 02/15/19 14:01 Pregabalin (Lyrica) 50 mg PO ONETIME [place] Stop: 02/15/19 14:00 Last Admin: 02/15/19 11:22 Dose: 50 mg Propofol (Diprivan 20 Ml) Confirm Administered Dose 600 mg .ROUTE .STK-MED ONE Stop: 02/15/19 10:28 Rocuronium [place] (Zemuron) Confirm Administered Dose 50 mg .ROUTE .STK-MED ONE Stop: 02/15/19 13:11 Rosuvastatin Calcium (Crestor) 10 mg PO BEDTIME [place] Last Admin: 02/15/19 21:08 Dose: 10 mg Senna (Senna) 8.6 mg PO BID PRN PRN Reason: Constipation Sodium Chloride (Saline Flush) 10 ml FLUSH ASDIRECTED PRN PRN Reason: Keep Vein Open Stop: 02/15/19 23:00 Tranexamic Acid (Cyklokapron) Confirm Administered Dose 1,000 mg .ROUTE .STK- MED ONE Stop: 02/15/19 10:50 Last Admin: 02/15/19 14:16 Dose: 1,000 mg Vancomycin HCl (Vancomycin) Confirm Administered Dose 1 gm .ROUTE .STK-MED ONE Stop: 02/15/19 10:50 Last Admin: 02/15/19 14:16 Dose: 1 gm - Exam Wound/Incisions: Dressing Dry and Intact General: Alert, Cooperative, No Acute Distress Lungs: Normal Respiratory Effort Extremities: Other (NVS intact for BLE. Sean's negative. Right thigh soft.) - Problem List Review Problem List Initiated/Reviewed/Updated: Yes - My Orders Last 24 Hours: Active Orders 24 hr Category Date Time Status Ready for Discharge [RC] PER UNIT ROUTINE Care 02/16/19 08:34 Active - Assessment Assessment (Free Text/Narrative):: POD#1 -right YESSY - Plan Plan (Free Text/Narrative):: 1. Hgb 11.8. 2. 325mg ASA PO BID, frequent mobility, TEDs. 3. YESSY precautions. 4. Discharge to home today if cleared by Hospitalist service. Dr. Humphrey also evaluated the pt today.
--- NOTE | 2019-02-17 20:03 | PCM.DCSUM1 ---
Discharge Summary - Hospital Course Brief History: Smith is a 73 yo male who underwent right YESSY with Dr. Humphrey on 02-15-2019. The procedure was completed under general anesthesia. The pt tolerated the procedure well and was admitted to the Medical-Surgical Unit. Medical management was provided by the Hospitalist service. The pt's Hospital course was uneventful. The pt's Hgb on POD#1 was 11.8. On POD#1, 325mg ASA BID was initiated for VTE prophylaxis. SCDs and TEDs were also ordered. A Mepilex dressing was placed at the incision site at the time of surgery and remained clean and dry. The pt participated in P.T. and O.T. and progressed well. He followed the YESSY precautions. The pt was allowed to WBAT. On POD#1, the pt was deemed appropriate to discharge to home with his family. - Discharge Data Discharge Date: 02/16/19 Discharge Disposition: Home, Self-Care 01 Condition: Good - Referral to Home Health Primary Care Physician: Jazz Contreras MD - Patient Summary/Data Consults: Consultations 02/15/19 11:15 OT Evaluation and Treatment [CONS] Routine PT Evaluation and Treatment [CONS] Routine 02/15/19 11:17 Consult to Physician [CONS] Routine - Patient Instructions Diet: Usual Diet as Tolerated Activity: Apply Ice, No Strenuous Activities, Partial Weight Bearing Activity, Other: Follow the total hip precautions. Driving: Do Not Drive Showering/Bathing: May Shower Wound/Incision Care: Keep Operative Site/Wound Site Clean and Dry, Do NOT Change Dressing Notify Provider of: Fever, Increased Pain, Swelling and Redness, Drainage, Nausea and/or Vomiting Other/Special Instructions: Please get up and moving around EVERY HOUR while awake. This helps to prevent blood clots. Please use your walker and have help with mobility as needed. Take a short walk in your home every hour while awake. Please take 325mg aspirin TWICE daily. The aspirin is being used for blood clot prevention and not for pain management so please do not miss a dose of the medication. Please do not use the 81mg aspirin while taking the 325mg aspirin twice daily. When the 325mg aspirin twice daily course is complete, you may return to use of the 81mg aspirin daily. You could use a medication like Pepcid and a medication like Prilosec or Nexium to protect your stomach while you are using the aspirin. At home, please complete the exercises that you learned during the Hospital stay. Schedule for physical therapy. Use the pain medication as needed. The medication may cause drowsiness and constipation. Contact your primary care provider for instructions if you are constipated. You may use a stool softener like docusate sodium or Colace 100mg twice daily and/or a laxative like Miralax daily for constipation. Increase your water and fiber intake while you are using the pain medication. Discontinue use of the pain medication as soon as able. Please do not use other medications that may cause drowsiness (other pain medications, anxiety pills, cold medications, sleeping pills, etc) while using the prescription pain medication. Do not use alcohol while using the pain medication. You may use acetaminophen or Tylenol for pain management, however, please ensure you are not using over 4000 mg or 4 grams of acetaminophen per day from all sources. Your pain medication has 325mg of acetaminophen per tablet. At this time, please do not use ibuprofen (Motrin, Advil) or naproxen (Aleve) for pain management as you are using the aspirin. When the aspirin course is completed in 5 weeks, you could use ibuprofen or naproxen for pain management (if this is allowed by your primary care provider). Wear the AMY hose during the day and you may remove these at night. Elevate the limb to decrease swelling. Place ice to the area often. Place a towel between your skin and the blue pad. Use the incentive spirometer often. Take deep breaths throughout the day. Please keep the dressing in place until follow-up. Notify the Clinic if the dressing becomes saturated. Increase your protein intake while you are healing. If you have diabetes, please closely monitor your blood sugars and notify your primary care provider with abnormal values. Elevated blood sugars increases the risk of infection. Call the Clinic with questions or concerns - [phone]. - Discharge Plan *PRESCRIPTION DRUG MONITORING PROGRAM REVIEWED*: No *COPY OF PRESCRIPTION DRUG MONITORING REPORT IN PATIENT KARISHMA: No Prescriptions/Med Rec: Acetaminophen/HYDROcodone [[place] 325-5 MG] 1 - 2 tab PO Q4H PRN #60 tablet PRN Reason: Pain Aspirin [Ecotrin EC] 325 mg PO BID #84 tab.ec Cyclobenzaprine [Flexeril] 5 mg PO BID PRN #15 tablet PRN Reason: Spasms Home Medications: Home Meds Cholecalciferol (Vitamin D3) [Vitamin D3] 5,000 unit PO DAILY 02/12/19 [History] Folic Acid 1 mg PO DAILY 02/12/19 [History] Multivitamin [Multi-Vitamin Daily] 1 tab PO DAILY 02/12/19 [History] Nitroglycerin [Nitrostat] 0.4 mg SL ASDIRECTED PRN 02/12/19 [History] Selenium Sulfide 1 applic TP ASDIRECTED PRN 02/12/19 [History] atorvaSTATin [Lipitor] 40 mg PO BEDTIME 02/12/19 [History] Acetaminophen/HYDROcodone [[place] 325-5 MG] 1 - 2 tab PO Q4H PRN #60 tablet 02/16 [Rx] Aspirin [Ecotrin EC] 325 mg PO BID #84 tab.ec 02/16/19 [Rx] Bisacodyl [Dulcolax] 5 mg PO DAILY PRN tablet 02/16/19 [Rx] Cyclobenzaprine [Flexeril] 5 mg PO BID PRN #15 tablet 02/16/19 [Rx] Docusate Sodium [Colace] 100 mg PO BID cap 02/16/19 [Rx] Famotidine [Pepcid] 20 mg PO Q12H tablet 02/16/19 [Rx] Magnesium Hydroxide [Milk of Magnesia] 30 ml PO BID PRN cup 02/16/19 [Rx] Sennosides [Senna] 8.6 mg PO BID PRN tablet 02/16/19 [Rx] Referrals: Shania Duvall PA-C [Physician Liaison Planner] - (1. Follow-up with on Saturday, February 23, 2019 at 2:30pm. 2. Follow-up with Shania Duvall PA-C on Saturday, March 02, 2019 at 2:30pm. 3. Follow-up up with Shania Duvall PA-C on Saturday, March 30, 2019 at 2:30pm.) Marina Garcia PA [Ordering Only Provider] - 02/19/19 10:00 am - Discharge Summary/Plan Comment DC Time >30 min.: No - Patient Data Vitals - Most Recent: Last Vital Signs Temp 97.6 F 02/16/19 08:43 Pulse 74 02/16/19 12:00 Resp 20 02/16/19 12:00 BP 139/52 L 02/16/19 12:00 Pulse Ox 99 02/16/19 12:00 Weight - Most Recent: 213 lb 9 oz Med Orders - Current: Current Medications Discontinued Medications Acetaminophen (Tylenol) 975 mg PO ONETIME [place] Stop: 02/15/19 23:00 Last Admin: 02/15/19 11:22 Dose: 975 mg Hydrocodone Bitart/Acetaminophen ([place] 325-5 Mg) 1 - 2 tab PO Q4H PRN PRN Reason: Pain Last Admin: 02/16/19 04:26 Dose: 2 tab Albuterol (Proventil Neb Soln) 2.5 mg NEB ONETIME ONE Stop: 02/15/19 11:32 Last Admin: 02/15/19 15:51 Dose: Not Given Aspirin (Ecotrin) 325 mg PO BID [facility] Last Admin: 02/16/19 08:42 Dose: 325 mg Bisacodyl (Dulcolax) 5 mg PO DAILY PRN PRN Reason: Constipation Bupivacaine HCl (Sensorcaine-Mpf 0.25%) Confirm Administered Dose 30 ml .ROUTE .STK-MED ONE Stop: 02/15/19 10:50 Last Admin: 02/15/19 14:16 Dose: 30 ml Bupivacaine HCl (Sensorcaine-Mpf 0.25%) Confirm Administered Dose 30 ml .ROUTE .STK-MED ONE Stop: 02/15/19 10:52 Cefazolin Sodium (Ancef) Confirm Administered Dose 2 gm .ROUTE .STK-MED ONE Stop: 02/15/19 10:29 Last Admin: 02/15/19 14:13 Dose: 2 gm Cefazolin Sodium (Ancef) Confirm Administered Dose 2 gm .ROUTE .STK-MED ONE Stop: 02/15/19 10:50 Cholecalciferol (Vitamin D3) 5,000 unit PO DAILY [facility] Last Admin: 02/16/19 08:42 Dose: 5,000 unit Morphine Sulfate 8 mg/Epinephrine HCl 0.3 mg/Cefuroxime Sodium 750 mg/Ketorolac Tromethamine 30 mg/Sodium Chloride 27.9 ml 0 mg .XX ONETIME ONE Stop: 02/15/19 12:31 Last Admin: 02/15/19 14:14 Dose: 788.3 mg Cyclobenzaprine HCl (Flexeril) 5 mg PO BID PRN PRN Reason: Spasms Last Admin: 02/15/19 21:08 Dose: 5 mg Dexamethasone (Dexamethasone) Confirm Administered Dose 20 mg .ROUTE .STK-MED ONE Stop: 02/15/19 10:29 Docusate Sodium (Colace) 100 mg PO BID [facility] Last Admin: 02/16/19 08:43 Dose: 100 mg Ephedrine Sulfate (Ephedrine In Ns) Confirm Administered Dose 25 mg .ROUTE .STK- MED ONE Stop: 02/15/19 13:28 Esmolol HCl (Esmolol) Confirm Administered Dose 100 mg .ROUTE .STK-MED ONE Stop: 02/15/19 14:33 Famotidine (Pepcid) 20 mg PO Q12H [facility] Last Admin: 02/16/19 08:42 Dose: 20 mg Fentanyl (Sublimaze) Confirm Administered Dose 100 mcg .ROUTE .STK-MED ONE Stop: 02/15/19 10:28 Fentanyl (Sublimaze) Confirm Administered Dose 100 mcg .ROUTE .STK-MED ONE Stop: 02/15/19 13:43 Fentanyl (Sublimaze) 50 mcg IVPUSH Q5M PRN PRN Reason: Pain Stop: 02/15/19 16:00 Folic Acid (Folic Acid) 1 mg PO DAILY [facility] Last Admin: 02/16/19 08:42 Dose: 1 mg Glycopyrrolate () Confirm Administered Dose 1 mg .ROUTE .STK-MED ONE Stop: 02/15/19 14:01 Hydromorphone HCl (Dilaudid) 0.5 mg IVPUSH Q10M PRN PRN Reason: Pain (severe 7-10) Stop: 02/15/19 16:00 Lactated Ringer's (Ringers, Lactated) 1,000 mls @ 125 mls/hr IV ASDIRECTED [facility] Stop: 02/15/19 23:00 Last Admin: 02/15/19 15:49 Dose: 125 mls/hr Lidocaine HCl (Xylocaine-Mpf 1%) Confirm Administered Dose 4 mls @ as directed .ROUTE .STK-MED ONE Stop: 02/15/19 10:29 Cefazolin Sodium/Dextrose 2 gm (/ Premix) 50 mls @ 100 mls/hr IV Q8H [facility] Stop: 02/16/19 12:29 Last Admin: 02/16/19 12:34 Dose: 100 mls/hr Lactated Ringer's (Ringers, Lactated) Confirm Administered Dose 1,000 mls @ as directed .ROUTE .STK-MED ONE Stop: 02/15/19 13:10 Lidocaine HCl (Xylocaine-Mpf 1%) Confirm Administered Dose 2 mls @ as directed .ROUTE .STK-MED ONE Stop: 02/15/19 13:11 Iodine (Iodine 2% Mild Tincture) Confirm Administered Dose 30 ml .ROUTE .STK- MED ONE Stop: 02/15/19 10:52 Last Admin: 02/15/19 14:10 Dose: 18 ml Ketamine HCl (Ketalar) Confirm Administered Dose 500 mg .ROUTE .STK-MED ONE Stop: 02/15/19 13:21 Ketorolac Tromethamine (Toradol) 15 mg IVPUSH Q6H PRN PRN Reason: Pain Last Admin: 02/15/19 21:10 Dose: 15 mg Ketorolac Tromethamine (Toradol) Confirm Administered Dose 30 mg .ROUTE .STK- MED ONE Stop: 02/15/19 14:01 Lidocaine/Sodium Bicarbonate (Buffered Lidocaine 1% In Ns 8.4%) 0.25 ml IDERM ONETIME PRN PRN Reason: Prior to IV Start Stop: 02/15/19 23:00 Last Admin: 02/15/19 11:25 Dose: 0.25 ml Magnesium Hydroxide (Milk Of Magnesia) 30 ml PO BID PRN PRN Reason: Constipation Midazolam HCl (Versed 1 Mg/Ml) Confirm Administered Dose 2 mg .ROUTE .STK-MED ONE Stop: 02/15/19 10:28 Morphine Sulfate (Morphine) 2 mg IVPUSH Q2H PRN PRN Reason: Breakthrough Pain Multivitamins (Thera) 1 each PO DAILY [place] Last Admin: 02/16/19 08:43 Dose: 1 each Naloxone HCl (Narcan) 0.1 mg IVPUSH Q5M PRN PRN Reason: Oversedation Neostigmine Methylsulfate (Neostigmine) Confirm Administered Dose 5 mg .ROUTE .STK-MED ONE Stop: 02/15/19 14:01 Nitroglycerin (Nitrostat) 0.4 mg SL ASDIRECTED PRN PRN Reason: Chest Pain Non-Formulary Medication (Selenium Sulfide [Selenium Sulfide]) 1 applic TP ASDIRECTED PRN PRN Reason: Dry Scalp Ondansetron HCl (Zofran) Confirm Administered Dose 4 mg .ROUTE .STK-MED ONE Stop: 02/15/19 10:29 Ondansetron HCl (Zofran) 4 mg IVPUSH Q6H PRN PRN Reason: Nausea/Vomiting Ondansetron HCl (Zofran) 4 mg IVPUSH ONETIME PRN PRN Reason: Nausea/Vomiting Stop: 02/15/19 16:00 Oxycodone HCl (Oxycontin) 10 mg PO ONETIME [place] Stop: 02/15/19 23:00 Last Admin: 02/15/19 11:21 Dose: 10 mg Phenylephrine HCl (Phenylephrine In Ns 100 Mcg/Ml) Confirm Administered Dose 1 mg .ROUTE .STK-MED ONE Stop: 02/15/19 14:01 Pregabalin (Lyrica) 50 mg PO ONETIME [place] Stop: 02/15/19 14:00 Last Admin: 02/15/19 11:22 Dose: 50 mg Propofol (Diprivan 20 Ml) Confirm Administered Dose 600 mg .ROUTE .STK-MED ONE Stop: 02/15/19 10:28 Rocuronium [place] (Zemuron) Confirm Administered Dose 50 mg .ROUTE .STK-MED ONE Stop: 02/15/19 13:11 Rosuvastatin Calcium (Crestor) 10 mg PO BEDTIME [facility] Last Admin: 02/15/19 21:08 Dose: 10 mg Senna (Senna) 8.6 mg PO BID PRN PRN Reason: Constipation Sodium Chloride (Saline Flush) 10 ml FLUSH ASDIRECTED PRN PRN Reason: Keep Vein Open Stop: 02/15/19 23:00 Tranexamic Acid (Cyklokapron) Confirm Administered Dose 1,000 mg .ROUTE .STK- MED ONE Stop: 02/15/19 10:50 Last Admin: 02/15/19 14:16 Dose: 1,000 mg Vancomycin HCl (Vancomycin) Confirm Administered Dose 1 gm .ROUTE .STK-MED ONE Stop: 02/15/19 10:50 Last Admin: 02/15/19 14:16 Dose: 1 gm
--- NOTE | 2019-02-19 13:49 | PCM.OPNOTE ---
- General Post-Op/Procedure Note Date of Surgery/Procedure: 02/15/19 Operative Procedure(s): right total hip arthroplasty Pre Op Diagnosis: right hip osteoarthrosis Post-Op Diagnosis: Same Anesthesia Technique: General ET Tube, Local Primary Surgeon: Pepe Humphrey Anesthesia Provider: Bobbi Flores Electrical Tester: Shania Duvall Electrical Tester: Mary Hernandez EBL in mLs: 150 Complications: None Condition: Good Free Text/Narrative:: 58mm 7 stem 36+0
--- NOTE | 2019-02-19 14:38 | OR ---
DATE OF OPERATION: 02/15/2019 SURGEON: Pepe Humphrey MD OPERATION PERFORMED: Right total hip arthroplasty. PREOPERATIVE DIAGNOSIS: Right hip osteoarthrosis. POSTOPERATIVE DIAGNOSIS: Right hip osteoarthrosis. ANESTHESIA: General endotracheal intubation with local. ANESTHESIA PROVIDER: Lary Pierson. ASSISTANTS: Shania Duvall PA-C and Mary Hernandez LPN. ESTIMATED BLOOD LOSS: 150 mL. COMPLICATIONS: None. CONDITION: Stable. IMPLANTS: 1. [place] size 58 mm solid Tritanium II acetabular cup. 2. [place] size 7 Accolade II stem. 3. [place] size 36+ 0 Biolox femoral head. DESCRIPTION OF PROCEDURE: The patient was identified in the preop holding area. Proper site was marked and identified by the surgeon. The patient was taken back to the operating theater where after adequate anesthesia, the patient was placed in a left lateral decubitus position. Axillary roll was placed. Pegs were then placed. All bony prominences were well padded. The gluteal fold was parallel to the floor. Right hip was then sterilely prepped and draped in the usual sterile fashion. OR time-out was performed. The patient received 2 g IV Ancef. At this time, standard posterior incision was made and this was taken down to the IT band and gluteal fascia, which was incised along the incisional length. The [place] retractor was then placed. Short external rotators were identified and takedown of short external rotators was done from the level of the piriformis down to the lesser trochanter. Hip was then dislocated. Neck cut was completed and found to be adequate. Attention was turned to the acetabulum. Anterior and posterior acetabular retractors were placed and starting with a 50 reamer, I was able to ream up to a 58, which was found to have adequate purchase. A 58 mm Tritanium II acetabular cup was then impacted in place roughly 20 to 30 degrees of anteversion and 45 degrees of abduction. The 36 mm flat liner was then impacted in place and attention was turned to the femur. A box chisel was used out laterally on the femur and starter awl was placed down the canal. Starting with the 0 broach, I was able to broach up to a size 7, which was found to be rotationally and vertically stable. Trial components were then placed and it was 36+ 0 had adequate gnosticist of leg lengths, and it was stable throughout range of motion. Bone hook had to be used to dislocate the hip. The size 7 Accolade II stem was impacted into place and another 36+ 0 Biolox ceramic femoral head was impacted into place. Hip was then relocated and a #5 Ethibond suture was used for closure of the short external rotators and capsule. 1 L dilute Betadine solution was irrigated through the hip along with 3 L of pulse lavage irrigation with Ancef. Topical tranexamic acid and vancomycin powder were placed, and a periarticular injection was completed. A #2 barbed suture was used for closure of the IT band and gluteal fascia, 2-0 Vicryl was used subcutaneously, and Prineo was used for the skin. The patient tolerated the procedure well and was sent to PACU in stable condition. DARLENE /[id number]
== END 2019-02-16 13:17 | disposition home or self-care (01) | DRG 470 ==
LOC: JD.MS 10:04
PROVIDERS: ADMIT Orthopaedic Surgery; ATTEND Orthopaedic Surgery
PROC: 0SR90JZ Replacement of Right Hip Joint with Synthetic Substitute, Open Approach (ICD-10-PCS; principal; 2019-02-15)
DX: M16.11 Unilateral primary osteoarthritis, right hip (principal); N17.9 Acute kidney failure, unspecified; M54.41 Lumbago with sciatica, right side; I25.10 Atherosclerotic heart disease of native coronary artery without angina pectoris; I10 Essential (primary) hypertension; E78.5 Hyperlipidemia, unspecified; G89.29 Other chronic pain; E78.00 Pure hypercholesterolemia, unspecified; H54.7 Unspecified visual loss; H91.93 Unspecified hearing loss, bilateral; Z87.891 Personal history of nicotine dependence; Z79.82 Long term (current) use of aspirin; Z79.899 Other long term (current) drug therapy; Z90.49 Acquired absence of other specified parts of digestive tract; I25.2 Old myocardial infarction; Z88.2 Allergy status to sulfonamides; Z88.8 Allergy status to other drugs, medicaments and biological substances; Z88.1 Allergy status to other antibiotic agents; Z95.5 Presence of coronary angioplasty implant and graft
CPT/HCPCS: 01214; 36415; 73501-26-RT; 73501-RT; 80053; 85027; 86850; 86900; 86901; 87641; 94760; 97110-GP; 97116-GP; 97161-GP; 97165-GO; 97535-GO; A9270-GY; C1776; J0171; J0690; J0697; J1100; J1885; J2001; J2250; J2270; J2370; J2405; J2704; J2710; J3010; J3370; J3490; J7050; J7120

== ENCOUNTER 2020-03-16 12:08 | Emergency (ER) | payer OTHER, MEDICARE, BC ==
--- NOTE | 2020-03-16 13:25 | EDM.PDOC ---
ED HPI GENERAL MEDICAL PROBLEM - General Chief Complaint: Respiratory Problem Stated Complaint: SOB,FATIGUE,SLIGHT HEADACHE Time Seen by Provider: 03/16/20 12:19 Source of Information: Reports: Patient, RN Notes Reviewed History Limitations: Reports: No Limitations - History of Present Illness INITIAL COMMENTS - FREE TEXT/NARRATIVE: Patient is a 74-year-old male presenting to the emergency department with complaints of shortness of breath, headache, intermittent abdominal upset, nausea, vomiting, and diarrhea. Symptoms have been occurring for approximately 5 days, however patient states that he is chronically short of breath and this has been occurring for the last couple years. He does feel like it is somewhat worse now that it has been in the past. He states that he had some nausea and dry heaves 4 to 5 days ago. He is no longer having the dry heaves, however states he does still feel nauseous. Is also had diarrhea in that same timeframe which she states has since revolved resolved. At this point, he complains of some intermittent abdominal cramping but "nothing major ". States this morning he found it very hard to catch his breath, however he states this has improved. Does complain of a dull headache and fatigue. He denies chest pain. His primary care provider is Dr. Contreras at the [facility]. Generalized Pain Score (Numeric/FACES): 4 - Related Data Allergies Allergy/AdvReac Type Severity Reaction Status Date / Time VARSHA Inhibitors Allergy Severe Rash Verified 03/16/20 12:23 sulfamethoxazole Allergy Severe Rash Verified 03/16/20 12:23 [From Bactrim] trimethoprim [From Bactrim] Allergy Severe Rash Verified 03/16/20 12:23 Home Meds: Home Meds Cholecalciferol (Vitamin D3) [Vitamin D3] 5,000 unit PO DAILY 02/12/19 [History] Folic Acid 1 mg PO DAILY 02/12/19 [History] Multivitamin [Multi-Vitamin Daily] 1 tab PO DAILY 02/12/19 [History] Nitroglycerin [Nitrostat] 0.4 mg SL ASDIRECTED PRN 02/12/19 [History] atorvaSTATin [Lipitor] 40 mg PO BEDTIME 02/12/19 [History] Aspirin [Ecotrin EC] 325 mg PO BID #84 tab.ec 02/16/19 [Rx] Past Medical History HEENT History: Reports: Hard of Hearing, Impaired Vision, Other (See Below) Other HEENT History: Bilateral hearing aides Cardiovascular History: Reports: CAD, High Cholesterol, Hypertension, DE, Stents Respiratory History: Reports: None Gastrointestinal History: Reports: Hemorrhoids Genitourinary History: Reports: Prostate Disorder Musculoskeletal History: Reports: Arthritis Other Musculoskeletal History: Lumbar back pain Neurological History: Reports: None Psychiatric History: Reports: None Endocrine/Metabolic History: Reports: None Hematologic History: Reports: None Immunologic History: Reports: None Oncologic (Cancer) History: Reports: Other (See Below) Other Oncologic History: Skin CA? Dermatologic History: Reports: None - Past Surgical History Other Cardiovascular Surgeries/Procedures: Angiogram GI Surgical History: Reports: Appendectomy, Colonoscopy, Other (See Below) Other GI Surgeries/Procedures: Hemorrhoidectomy Musculoskeletal Surgical History: Reports: Hip Replacement Social & Family History - Tobacco Use Tobacco Use Status *Q: Former Tobacco User Used Tobacco, but Quit: Yes Month/Year Tobacco Last Used: 1979 - Caffeine Use Caffeine Use: Reports: Coffee - Recreational Drug Use Recreational Drug Use: No ED ROS GENERAL - Review of Systems Review Of Systems: See Below Constitutional: Reports: Weakness, Fatigue. Denies: Fever, Chills HEENT: Denies: Sinus Problem, Throat Pain Respiratory: Reports: Shortness of Breath, Other (chest tightness) Cardiovascular: Reports: Dyspnea on Exertion. Denies: Chest Pain, Syncope Endocrine: Reports: No Symptoms GI/Abdominal: Reports: Abdominal Pain (intermittent generalized cramping), Diarrhea, Nausea, Other (dry heaves) : Reports: No Symptoms Musculoskeletal: Reports: No Symptoms Skin: Reports: No Symptoms Neurological: Reports: Headache. Denies: Confusion Psychiatric: Reports: No Symptoms Hematologic/Lymphatic: Reports: No Symptoms Immunologic: Reports: No Symptoms ED EXAM, GENERAL - Physical Exam Exam: See Below Exam Limited By: No Limitations General Appearance: Alert, WD/WN, No Apparent Distress Respiratory/Chest: No Respiratory Distress, Lungs Clear, Normal Breath Sounds, No Accessory Muscle Use, Chest Non-Tender Cardiovascular: Normal Peripheral Pulses, Regular Rate, Rhythm, No Edema, No Gallop, No JVD, No Murmur, No Rub GI/Abdominal: Normal Bowel Sounds, Soft, Non-Tender, No Organomegaly, No Distention, No Abnormal Bruit, No Mass Neurological: Alert, Oriented, CN II-XII Intact, Normal Cognition, Normal Gait, Normal Reflexes, No Motor/Sensory Deficits Psychiatric: Normal Affect, Normal Mood Skin Exam: Warm, Dry, Intact, Normal Color, No Rash #1 Interpretation EKG Date: 03/16/20 Time: 12:28 Rhythm: NSR Rate (Beats/Min): 68 Dwarf: Normal P-Wave: Present QRS: RBBB ST-T: Normal QT: Normal Course - Vital Signs Last Recorded V/S: Last Vital Signs Temp 98.0 F 03/16/20 15:51 Pulse 69 03/16/20 15:51 Resp 18 03/16/20 15:51 BP 166/73 H 03/16/20 15:51 Pulse Ox 96 03/16/20 15:51 - Orders/Labs/Meds Orders: Active Orders 24 hr Category Date Time Status EKG 12 Lead [EK] Stat Ther 03/16/20 12:27 Ordered Labs: Laboratory Tests 03/16/20 03/16/20 03/16/20 Range/Units 13:05 13:05 13:05 WBC 5.01 (4.23-9.07) K/mm3 RBC 4.15 L (4.63-6.08) M/mm3 Hgb 12.6 L (13.7-17.5) gm/dl Hct 38.9 L (40.1-51.0) % MCV 93.7 H (79.0-92.2) fl MCH 30.4 (25.7-32.2) pg MCHC 32.4 (32.2-35.5) g/dl RDW Std Deviation 45.1 H (35.1-43.9) fL Plt Count 167 (163-337) K/mm3 MPV 9.3 L (9.4-12.3) fl Neut % (Auto) 64.6 (34.0-67.9) % Lymph % (Auto) 14.0 L (21.8-53.1) % Louisa % (Auto) 21.0 H (5.3-12.2) % Eos % (Auto) 0 L (0.8-7.0) Baso % (Auto) 0.2 (0.1-1.2) % Neut # (Auto) 3.24 (1.78-5.38) K/mm3 Lymph # (Auto) 0.70 L (1.32-3.57) K/mm3 Louisa # (Auto) 1.05 H (0.30-0.82) K/mm3 Eos # (Auto) 0.00 L (0.04-0.54) K/mm3 Baso # (Auto) 0.01 (0.01-0.08) K/mm3 Manual Slide Review Abnormal smear D-Dimer, Quantitative 0.51 H (0.19-0.50) mg/L Sodium 137 (136-145) mEq/L Potassium 3.8 (3.5-5.1) mEq/L Chloride 103 (98-107) mEq/L Carbon Dioxide 24 (21-32) mEq/L Anion Gap 13.8 (5-15) BUN 21 H (7-18) mg/dL Creatinine 1.1 (0.7-1.3) mg/dL Est Cr Clr Drug Dosing 63.69 mL/min Estimated GFR (MDRD) > 60 (>60) mL/min BUN/Creatinine Ratio 19.1 H (14-18) Glucose 102 (83-115) mg/dL Calcium 9.1 (8.5-10.1) mg/dL Total Bilirubin 0.5 (0.2-1.0) mg/dL AST 30 (15-37) U/L ALT 40 (16-63) U/L Alkaline Phosphatase 80 (46-116) U/L Troponin I < 0.017 (0.00-0.056) ng/mL C-Reactive Protein 1.7 H* (<1.0) mg/dL NT-Pro-B Natriuret Pep (0-450) pg/mL Total Protein 6.9 (6.4-8.2) g/dl Albumin 3.6 (3.4-5.0) g/dl Globulin 3.3 gm/dL Albumin/Globulin Ratio 1.1 (1-2) SARS-CoV-2 RNA (SAMMY) (NEGATIVE) 03/16/20 03/16/20 Range/Units 13:05 13:41 WBC (4.23-9.07) K/mm3 RBC (4.63-6.08) M/mm3 Hgb (13.7-17.5) gm/dl Hct (40.1-51.0) % MCV (79.0-92.2) fl MCH (25.7-32.2) pg MCHC (32.2-35.5) g/dl RDW Std Deviation (35.1-43.9) fL Plt Count (163-337) K/mm3 MPV (9.4-12.3) fl Neut % (Auto) (34.0-67.9) % Lymph % (Auto) (21.8-53.1) % Louisa % (Auto) (5.3-12.2) % Eos % (Auto) (0.8-7.0) Baso % (Auto) (0.1-1.2) % Neut # (Auto) (1.78-5.38) K/mm3 Lymph # (Auto) (1.32-3.57) K/mm3 Louisa # (Auto) (0.30-0.82) K/mm3 Eos # (Auto) (0.04-0.54) K/mm3 Baso # (Auto) (0.01-0.08) K/mm3 Manual Slide Review D-Dimer, Quantitative (0.19-0.50) mg/L Sodium (136-145) mEq/L Potassium (3.5-5.1) mEq/L Chloride (98-107) mEq/L Carbon Dioxide (21-32) mEq/L Anion Gap (5-15) BUN (7-18) mg/dL Creatinine (0.7-1.3) mg/dL Est Cr Clr Drug Dosing mL/min Estimated GFR (MDRD) (>60) mL/min BUN/Creatinine Ratio (14-18) Glucose (83-115) mg/dL Calcium (8.5-10.1) mg/dL Total Bilirubin (0.2-1.0) mg/dL AST (15-37) U/L ALT (16-63) U/L Alkaline Phosphatase (46-116) U/L Troponin I (0.00-0.056) ng/mL C-Reactive Protein (<1.0) mg/dL NT-Pro-B Natriuret Pep 269 (0-450) pg/mL Total Protein (6.4-8.2) g/dl Albumin (3.4-5.0) g/dl Globulin gm/dL Albumin/Globulin Ratio (1-2) SARS-CoV-2 RNA (SAMMY) Negative (NEGATIVE) - Re-Assessments/Exams Free Text/Narrative Re-Assessment/Exam: Patient is a 74-year-old male presenting to the emergency department with complaints of shortness of breath, headache, intermittent abdominal upset, nausea, vomiting, and diarrhea. He has had no fever or chills. On exam, lung sounds are clear. He is afebrile in triage. Oxygen saturations are 94-90 per 6% on room air. Will order a cardiac work-up as well as Covid work-up. I ordered CBC, CMP, CRP, troponin, D-dimer, EKG, chest x-ray. Based on patient's age, he would qualify for Bamlanivimad if he is Covid positive, therefore we will do a 1 hour Covid screen 03/16/20 15:13 Hematology was significant for hemoglobin slightly low at 12.6, CRP 1.7. D- dimer was 0.51 which would be considered normal for 74-year-old individual. Troponin was negative and COVID-19 test was also negative. Chest x-ray was clear. EKG showed no acute abnormalities. Discussed with patient that he may have been suffering from a viral gastroenteritis which she is still recovering from. Recommend that he follow-up with his primary care provider regarding his chronic shortness of breath over the last few years. He is in agreement with this plan. Discharge instructions as documented. Departure - Departure Time of Disposition: 15:13 Disposition: Home, Self-Care 01 Condition: Good Clinical Impression: Shortness of breath, Viral illness - Discharge Information *PRESCRIPTION DRUG MONITORING PROGRAM REVIEWED*: No *COPY OF PRESCRIPTION DRUG MONITORING REPORT IN PATIENT KARISHMA: No Instructions: Shortness of Breath, Adult, [id number], Viral Illness, Adult Referrals: Jazz Contreras MD [Ordering Only Provider] - Forms: ED Department Discharge Additional Instructions: You were seen in the emergency department today for shortness of breath, abdominal upset, nausea, [place]. Work-up included blood work, EKG of your heart, chest x-ray. Results of work-up were found to be normal. There is no signs of pneumonia. You were also tested for COVID-19 which is negative. As we discussed, you are likely suffering from a viral illness. Recommend that you continue symptomatic treatment at home. Follow-up with your primary care provider to discuss your chronic shortness of breath. If you experience any new or worsening symptoms of concern, please not hesitate to return to the emergency department. Sepsis Event Note (ED) - Evaluation Sepsis Screening Result: No Definite Risk - Focused Exam Vital Signs: Vital Signs Temp Pulse Resp BP Pulse Ox 03/16/20 15:51 98.0 F 69 18 166/73 H 96 03/16/20 13:47 64 16 139/60 94 L 03/16/20 12:18 96.9 F 88 18 186/75 H 96 - My Orders Last 24 Hours: My Active Orders 03/16/20 12:27 EKG 12 Lead [EK] Stat - Assessment/Plan Last 24 Hours: My Active Orders 03/16/20 12:27 EKG 12 Lead [EK] Stat
--- NOTE | 2020-03-16 14:35 | CR ---
PROCEDURE INFORMATION: Exam: XR Chest, 1 View Exam date and time: 03/16/2020 12:29 PM Age: 74 years old Clinical indication: Shortness of breath TECHNIQUE: Imaging protocol: XR of the chest Views: 1 view. COMPARISON: No relevant prior studies available. FINDINGS: Lungs: Unremarkable. No consolidation. Pleural space: Unremarkable. No pleural effusion. No pneumothorax. Heart/Mediastinum: Unremarkable. No cardiomegaly. Bones/joints: Unremarkable. IMPRESSION: No acute findings. Thank you for allowing us to participate in the care of your patient. Dictated and Authenticated by: Alex John MD 03/16/2020 3:33 PM Central Time ([place] & [place]) [facility]
== END 2020-03-16 16:00 | disposition home or self-care (01) ==
LOC: JD.ED 12:08
DX: R06.02 Shortness of breath (principal); B34.9 Viral infection, unspecified; I25.10 Atherosclerotic heart disease of native coronary artery without angina pectoris; E78.00 Pure hypercholesterolemia, unspecified; I10 Essential (primary) hypertension; I25.2 Old myocardial infarction; Z95.5 Presence of coronary angioplasty implant and graft; M19.90 Unspecified osteoarthritis, unspecified site; Z79.82 Long term (current) use of aspirin; Z20.828 Contact with and (suspected) exposure to other viral communicable diseases; Z88.8 Allergy status to other drugs, medicaments and biological substances; Z88.2 Allergy status to sulfonamides; Z88.1 Allergy status to other antibiotic agents; Z87.891 Personal history of nicotine dependence
CPT/HCPCS: 36415; 71045; 71045-26; 80053; 83880; 84484; 85025; 85379; 86140; 93005; 93010; 99283; 99285-25; U0002

== ENCOUNTER 2020-03-20 16:35 | Emergency (ER) | payer OTHER, MEDICARE, BC ==
[2020-03-20] MEDS ORDERED: Sodium Chloride 0.9% 10 ML Syringe FLUSH PRN ×2 (17:33→20:23)
[2020-03-20] MEDS ORDERED: cefTRIAXone 2 GM in Sodium Chloride 0.9% 100 ML IV ONE (17:35)
[2020-03-20] MEDS ORDERED: Sodium Chloride 0.9% 100 ML IV ONE (20:23)
[2020-03-20] MEDS ORDERED: Iopamidol 755 Mg/ML 100 ML Bottle IVPUSH ONE (20:23)
[2020-03-20] MEDS ORDERED: Ondansetron 4 MG/2 ML SDV IVPUSH ONE (20:26)
--- NOTE | 2020-03-20 20:47 | EDM.PDOC ---
ED HPI GENERAL MEDICAL PROBLEM - General Chief Complaint: Respiratory Problem Stated Complaint: SOB Time Seen by Provider: 03/20/20 17:05 Source of Information: Reports: Patient History Limitations: Reports: No Limitations - History of Present Illness INITIAL COMMENTS - FREE TEXT/NARRATIVE: The patient presents from [facility] for a possible pneumonia. The patient has been having a fever, chills, cough, shortness of breath and generalized weakness for over a week. He was here last week and was tested for COVID 19 which was negative and he had a CXR and that looked good. He did not feel better so he went to [facility] in [place] and they did a CXR and labs. His WBC was elevated at 12.2. His CXR showed an infiltrate in the right lower lobe. They sent him up here for possible admission. Onset: Gradual Duration: Week(s): Severity: Moderate Improves with: Reports: None Worsens with: Reports: None Associated Symptoms: Reports: Cough, Shortness of Breath. Denies: Chest Pain, Fever/Chills, Headaches, Nausea/Vomiting Abdomen Pain Score (Numeric/FACES): 5 - Related Data Allergies Allergy/AdvReac Type Severity Reaction Status Date / Time VARSHA Inhibitors Allergy Severe Rash Verified 03/20/20 16:56 sulfamethoxazole Allergy Severe Rash Verified 03/20/20 16:56 [From Bactrim] trimethoprim [From Bactrim] Allergy Severe Rash Verified 03/20/20 16:56 Home Meds: Home Meds Cholecalciferol (Vitamin D3) [Vitamin D3] 5,000 unit PO DAILY 02/12/19 [History] Folic Acid 1 mg PO DAILY 02/12/19 [History] Multivitamin [Multi-Vitamin Daily] 1 tab PO DAILY 02/12/19 [History] Nitroglycerin [Nitrostat] 0.4 mg SL ASDIRECTED PRN 02/12/19 [History] atorvaSTATin [Lipitor] 40 mg PO BEDTIME 02/12/19 [History] Aspirin [Aspirin EC] 1 tab PO DAILY 03/20/20 [History] Azithromycin [Zithromax] 1 tab PO DAILY 03/20/20 [History] Doxazosin Mesylate [Cardura] 1 tab PO DAILY 03/20/20 [History] FLUoxetine [PROzac] 20 mg PO DAILY 03/20/20 [History] Famotidine [Pepcid] 1 tab PO DAILY 03/20/20 [History] Mometasone Furoate [Asmanex] 1 puff INH TID 03/20/20 [History] Montelukast Sodium [Singulair] 1 tab PO DAILY 03/20/20 [History] Vit C/E/Zn/Coppr/Lutein/Zeaxan [Preservision Areds 2 Softgel] 1 tab PO DAILY 03/20/20 [History] dexAMETHasone [Dexamethasone] 1 tab PO ASDIRECTED 03/20/20 [History] traZODone HCl [Trazodone HCl] 50 mg PO BEDTIME 03/20/20 [History] Past Medical History HEENT History: Reports: Hard of Hearing, Impaired Vision, Other (See Below) Other HEENT History: Bilateral hearing aides Cardiovascular History: Reports: CAD, High Cholesterol, Hypertension, DC, Stents Respiratory History: Reports: None Gastrointestinal History: Reports: Hemorrhoids Genitourinary History: Reports: Prostate Disorder Musculoskeletal History: Reports: Arthritis Other Musculoskeletal History: Lumbar back pain Neurological History: Reports: None Psychiatric History: Reports: None Endocrine/Metabolic History: Reports: None Hematologic History: Reports: None Immunologic History: Reports: None Oncologic (Cancer) History: Reports: Other (See Below) Other Oncologic History: Skin CA? Dermatologic History: Reports: None - Infectious Disease History Infectious Disease History: Reports: Novel Coronavirus - Past Surgical History Other Cardiovascular Surgeries/Procedures: Angiogram Respiratory Surgical History: Reports: None GI Surgical History: Reports: Appendectomy, Colonoscopy, Other (See Below) Other GI Surgeries/Procedures: Hemorrhoidectomy Male Surgical History: Reports: None Endocrine Surgical History: Reports: None Neurological Surgical History: Reports: None Musculoskeletal Surgical History: Reports: Hip Replacement Oncologic Surgical History: Reports: None Dermatological Surgical History: Reports: None Social & Family History - Tobacco Use Tobacco Use Status *Q: Former Tobacco User Used Tobacco, but Quit: Yes Month/Year Tobacco Last Used: 1969 - Caffeine Use Caffeine Use: Reports: Coffee - Recreational Drug Use Recreational Drug Use: No ED ROS GENERAL - Review of Systems Review Of Systems: See Below Constitutional: Reports: No Symptoms HEENT: Reports: No Symptoms Respiratory: Reports: Shortness of Breath, Cough Cardiovascular: Reports: No Symptoms Endocrine: Reports: No Symptoms GI/Abdominal: Reports: No Symptoms ED EXAM, GENERAL - Physical Exam Exam: See Below Exam Limited By: No Limitations General Appearance: Alert, No Apparent Distress Ears: Normal External Exam Nose: Normal Inspection Head: Atraumatic, Normocephalic Neck: Normal Inspection Respiratory/Chest: No Respiratory Distress, Decreased Breath Sounds, Rhonchi Cardiovascular: Regular Rate, Rhythm, No Edema, No Murmur GI/Abdominal: Soft, Non-Tender, No Organomegaly, No Mass Back Exam: Normal Inspection Extremities: Normal Inspection Neurological: Alert, Oriented, No Motor/Sensory Deficits Course - Vital Signs Last Recorded V/S: Last Vital Signs Temp 99.3 F 03/20/20 16:51 Pulse 86 03/20/20 16:51 Resp 24 H 03/20/20 16:51 BP 190/75 H 03/20/20 16:51 Pulse Ox 95 03/20/20 18:07 - Orders/Labs/Meds Orders: Active Orders 24 hr Category Date Time Status Cardiac Monitoring [RC] . DIRECTED Care 03/20/20 17:33 Active Oxygen Therapy [RC] PRN Care 03/20/20 17:33 Active Peripheral IV Care [RC] . DIRECTED Care 03/20/20 17:34 Active Ang Chest [CT] Stat Exams 03/20/20 18:45 Taken Chest 1V Frontal [CR] Stat Exams 03/20/20 17:34 Taken CULTURE BLOOD [BC] Stat Lab 03/20/20 17:50 Received CULTURE BLOOD [BC] Stat Lab 03/20/20 18:00 Received Sodium Chloride 0.9% [Saline Flush] Med 03/20/20 17:33 Active 10 ml FLUSH ASDIRECTED PRN Sodium Chloride 0.9% [Saline Flush] Med 03/20/20 20:23 Active 10 ml FLUSH ASDIRECTED PRN dexAMETHasone [Decadron] Med 03/20/20 20:50 Once 6 mg IVPUSH ONETIME ONE Blood Culture x2 Reflex Set [OM.PC] Stat Oth 03/20/20 17:35 Ordered Peripheral IV Insertion Adult [OM.PC] Stat Oth 03/20/20 17:33 Ordered Medication Orders Sodium Chloride (Saline Flush) 10 ml FLUSH ASDIRECTED PRN PRN Reason: Keep Vein Open Last Admin: 03/20/20 18:07 Dose: 10 ml Documented by: LISA Sodium Chloride (Saline Flush) 10 ml FLUSH ASDIRECTED PRN PRN Reason: Keep Vein Open Last Admin: 03/20/20 20:25 Dose: 10 ml Documented by: KOKO Labs: Laboratory Tests 03/20/20 03/20/20 03/20/20 Range/Units 17:50 17:50 17:50 WBC 10.83 H (4.23-9.07) K/mm3 RBC 4.30 L (4.63-6.08) M/mm3 Hgb 13.3 L (13.7-17.5) gm/dl Hct 39.1 L (40.1-51.0) % MCV 90.9 (79.0-92.2) fl MCH 30.9 (25.7-32.2) pg MCHC 34.0 (32.2-35.5) g/dl RDW Std Deviation 44.0 H (35.1-43.9) fL Plt Count 182 (163-337) K/mm3 MPV 9.7 (9.4-12.3) fl Neut % (Auto) 88.1 H (34.0-67.9) % Lymph % (Auto) 3.8 L (21.8-53.1) % P[place] % (Auto) 8.1 (5.3-12.2) % Eos % (Auto) 0 L (0.8-7.0) Baso % (Auto) 0.0 L (0.1-1.2) % Neut # (Auto) 9.54 H (1.78-5.38) K/mm3 Lymph # (Auto) 0.41 L (1.32-3.57) K/mm3 P[place] # (Auto) 0.88 H (0.30-0.82) K/mm3 Eos # (Auto) 0.00 L (0.04-0.54) K/mm3 Baso # (Auto) 0.00 L (0.01-0.08) K/mm3 Manual Slide Review Abnormal smear PT 10.8 (9.7-12.0) SECONDS INR 1.01 APTT 25.2 (21.7-31.4) SECONDS D-Dimer, Quantitative 1.47 H (0.19-0.50) mg/L Sodium 135 L (136-145) mEq/L Potassium 3.7 (3.5-5.1) mEq/L Chloride 99 (98-107) mEq/L Carbon Dioxide 25 (21-32) mEq/L Anion Gap 14.7 (5-15) BUN 20 H (7-18) mg/dL Creatinine 1.0 (0.7-1.3) mg/dL Est Cr Clr Drug Dosing 70.06 mL/min Estimated GFR (MDRD) > 60 (>60) mL/min BUN/Creatinine Ratio 20.0 H (14-18) Glucose 119 H (83-115) mg/dL Lactic Acid (0.4-2.0) mmol/L Calcium 8.8 (8.5-10.1) mg/dL Ferritin (26-388) ng/ml Total Bilirubin 0.5 (0.2-1.0) mg/dL AST 31 (15-37) U/L ALT 56 (16-63) U/L Alkaline Phosphatase 85 (46-116) U/L Lactate Dehydrogenase 255 H (85-227) U/L C-Reactive Protein 2.6 H* (<1.0) mg/dL Total Protein 7.0 (6.4-8.2) g/dl Albumin 3.4 (3.4-5.0) g/dl Globulin 3.6 gm/dL Albumin/Globulin Ratio 0.9 L (1-2) SARS-CoV-2 RNA ([facility]) (NEGATIVE) 03/20/20 03/20/20 03/20/20 Range/Units 17:50 17:50 18:02 WBC (4.23-9.07) K/mm3 RBC (4.63-6.08) M/mm3 Hgb (13.7-17.5) gm/dl Hct (40.1-51.0) % MCV (79.0-92.2) fl MCH (25.7-32.2) pg MCHC (32.2-35.5) g/dl RDW Std Deviation (35.1-43.9) fL Plt Count (163-337) K/mm3 MPV (9.4-12.3) fl Neut % (Auto) (34.0-67.9) % Lymph % (Auto) (21.8-53.1) % Pinal % (Auto) (5.3-12.2) % Eos % (Auto) (0.8-7.0) Baso % (Auto) (0.1-1.2) % Neut # (Auto) (1.78-5.38) K/mm3 Lymph # (Auto) (1.32-3.57) K/mm3 P[place] # (Auto) (0.30-0.82) K/mm3 Eos # (Auto) (0.04-0.54) K/mm3 Baso # (Auto) (0.01-0.08) K/mm3 Manual Slide Review PT (9.7-12.0) SECONDS INR APTT (21.7-31.4) SECONDS D-Dimer, Quantitative (0.19-0.50) mg/L Sodium (136-145) mEq/L Potassium (3.5-5.1) mEq/L Chloride (98-107) mEq/L Carbon Dioxide (21-32) mEq/L Anion Gap (5-15) BUN (7-18) mg/dL Creatinine (0.7-1.3) mg/dL Est Cr Clr Drug Dosing mL/min Estimated GFR (MDRD) (>60) mL/min BUN/Creatinine Ratio (14-18) Glucose (83-115) mg/dL Lactic Acid 1.8 (0.4-2.0) mmol/L Calcium (8.5-10.1) mg/dL Ferritin 1782 H (26-388) ng/ml Total Bilirubin (0.2-1.0) mg/dL AST (15-37) U/L ALT (16-63) U/L Alkaline Phosphatase (46-116) U/L Lactate Dehydrogenase (85-227) U/L C-Reactive Protein (<1.0) mg/dL Total Protein (6.4-8.2) g/dl Albumin (3.4-5.0) g/dl Globulin gm/dL Albumin/Globulin Ratio (1-2) SARS-CoV-2 RNA ([facility]) Positive H (NEGATIVE) Meds: Medications Generic Name Dose Route Start Last Admin Trade Name Freq PRN Reason Stop Dose Admin Sodium Chloride 10 ml 03/20/20 17:33 03/20/20 18:07 Saline Flush FLUSH 10 ml ASDIRECTED PRN Administration Keep Vein Open Sodium Chloride 10 ml 03/20/20 20:23 03/20/20 20:25 Saline Flush FLUSH 10 ml ASDIRECTED PRN Administration Keep Vein Open Discontinued Medications Generic Name Dose Route Start Last Admin Trade Name Deanne PRN Reason Stop Dose Admin Ceftriaxone Sodium 2 gm/ 100 mls @ 200 mls/hr 03/20/20 17:35 03/20/20 18:07 Sodium Chloride IV 03/20/20 18:04 200 mls/hr ONETIME ONE Administration Sodium Chloride 100 mls @ 4 mls/sec 03/20/20 20:23 03/20/20 20:24 Normal Saline IV 03/20/20 20:24 4 mls/sec ONETIME ONE Administration Iopamidol 100 ml 03/20/20 20:23 03/20/20 20:24 Isovue-370 (76%) IVPUSH 03/20/20 20:24 100 ml ONETIME ONE Administration Ondansetron HCl 4 mg 03/20/20 20:26 03/20/20 20:30 Zofran IVPUSH 03/20/20 20:27 4 mg ONETIME ONE Administration - Re-Assessments/Exams Free Text/Narrative Re-Assessment/Exam: 03/20/20 20:58 I ordered oxygen, IV saline lock, labs and a CXR. His WBC was slightly elevated at 10.83. His Hgb was 13.3. His D-dimer was elevated at 1.47. His Na was 135. His ferritin was elevated at 1782. His LDH was elevated at 255. His CRP is was elevated at 2.6. He is COVID 19 positive at this time. I did order a CT angio of his chest. I did ordered blood cultures and gave him a dose of rocephin [address] showed mild cardiomegaly, no evidence of pulmonary embolism, mild pericholecystic edema suggesting cholecystitis. Moderate emphysematous changes. Bilateral nonspecific peripheral ground glass opacities. He has no PE and he has no RUQ abdominal pain. I doubt he has cholecystitis. 03/20/20 21:03 I feel he needs to be admitted. We have no beds here and [facility] is full. He would like to avoid going to [place]. I called [facility] in [place] and Dr Pollock accepted the patient. 03/20/20 21:04 Departure - Departure Time of Disposition: 21:10 Disposition: DC/Tfer to Acute Hospital 02 Condition: Poor Clinical Impression: COVID-19, Pneumonia due to COVID-19 virus, Cholecystitis - Discharge Information Referrals: Jazz Contreras MD [Primary Care Provider] - Forms: ED Department Discharge Sepsis Event Note (ED) - Evaluation Sepsis Screening Result: No Definite Risk - Focused Exam Vital Signs: Vital Signs Temp Pulse Resp BP Pulse Ox Pulse Ox 03/20/20 18:07 95 03/20/20 16:51 99.3 F 86 24 H 190/75 H 90 L - My Orders Last 24 Hours: My Active Orders 03/20/20 17:33 Cardiac Monitoring [RC] . DIRECTED Oxygen Therapy [RC] PRN Sodium Chloride 0.9% [Saline Flush] 10 ml FLUSH ASDIRECTED PRN Peripheral IV Insertion Adult [OM.PC] Stat 03/20/20 17:34 Peripheral IV Care [RC] . DIRECTED Chest 1V Frontal [CR] Stat 03/20/20 17:35 Blood Culture x2 Reflex Set [OM.PC] Stat 03/20/20 17:50 CULTURE BLOOD [BC] Stat 03/20/20 18:00 CULTURE BLOOD [BC] Stat 03/20/20 18:45 Ang Chest [CT] Stat 03/20/20 20:23 Sodium Chloride 0.9% [Saline Flush] 10 ml FLUSH ASDIRECTED PRN 03/20/20 20:50 dexAMETHasone [Decadron] 6 mg IVPUSH ONETIME ONE - Assessment/Plan Last 24 Hours: My Active Orders 03/20/20 17:33 Cardiac Monitoring [RC] . DIRECTED Oxygen Therapy [RC] PRN Sodium Chloride 0.9% [Saline Flush] 10 ml FLUSH ASDIRECTED PRN Peripheral IV Insertion Adult [OM.PC] Stat 03/20/20 17:34 Peripheral IV Care [RC] . DIRECTED Chest 1V Frontal [CR] Stat 03/20/20 17:35 Blood Culture x2 Reflex Set [OM.PC] Stat 03/20/20 17:50 CULTURE BLOOD [BC] Stat 03/20/20 18:00 CULTURE BLOOD [BC] Stat 03/20/20 18:45 Ang Chest [CT] Stat 03/20/20 20:23 Sodium Chloride 0.9% [Saline Flush] 10 ml FLUSH ASDIRECTED PRN 03/20/20 20:50 dexAMETHasone [Decadron] 6 mg IVPUSH ONETIME ONE
[2020-03-20] MEDS ORDERED: Dexamethasone 4 MG/ML SDV IVPUSH ONE (20:50)
--- NOTE | 2020-03-21 09:06 | CR ---
PROCEDURE INFORMATION: Exam: XR Chest, 1 View Exam date and time: 03/20/2020 5:39 PM Age: 74 years old Clinical indication: Chest pain; Type not specified TECHNIQUE: Imaging protocol: XR of the chest Views: 1 view. COMPARISON: CR Chest 1V Frontal 03/16/2020 12:29 PM FINDINGS: Lungs: There are faint nonspecific ground-glass opacities in both lungs. Pleural space: There are no pleural effusions present. Heart/Mediastinum: The heart is not enlarged. The pulmonary arteries are not enlarged. Bones/joints: Unremarkable IMPRESSION: Nonspecific faint ground-glass opacities in the lungs. Thank you for allowing us to participate in the care of your patient. Dictated and Authenticated by: Delfino Coronado MD 03/20/2020 7:23 PM Central Time ([place] & [place]) SE[facility]
--- NOTE | 2020-03-21 09:09 | CT ---
PROCEDURE INFORMATION: Exam: CT Angiography Chest With Contrast Exam date and time: 03/20/2020 7:11 PM Age: 74 years old Clinical indication: Other: Elevated d dimer TECHNIQUE: Imaging protocol: Computed tomographic angiography of the chest with intravenous contrast. 3D rendering (Not supervised by radiologist): MIP and/or 3D reconstructed images were created by the technologist. Radiation optimization: All CT scans at this facility use at least one of these dose optimization techniques: automated exposure control; mA and/or kV adjustment per patient size (includes targeted exams where dose is matched to clinical indication); or iterative reconstruction. Contrast material: ISOVUE 370; Contrast volume: 100 ml; Contrast route: INTRAVENOUS (IV); COMPARISON: CR Chest 1V Frontal 03/20/2020 5:39 PM FINDINGS: Pulmonary arteries: There is no evidence of filling defects within the pulmonary arterial circulation to suggest pulmonary embolism. Aorta: The aorta is normal. Lungs: Moderate centrilobular emphysematous changes are present. There are moderate mostly peripheral nonspecific ground-glass opacities scattered in both lungs. Pleural space: There are no pleural effusions present. Heart: The heart demonstrates mild diffuse enlargement. There is mild atherosclerotic calcification of the coronary arteries. Lymph nodes: No pathologic lymph node enlargement is demonstrated. Bones/joints: Marginal osteophytes are noted at multiple levels in the spine. Soft tissues: The extrathoracic soft tissues are normal. Other findings: There appears to be mild pericholecystic edema. IMPRESSION: 1. Mild cardiomegaly. 2. No evidence of pulmonary embolism. 3. Mild pericholecystic edema suggesting cholecystitis. 4. Moderate emphysematous changes. 5. Bilateral nonspecific peripheral ground-glass opacities. Thank you for allowing us to participate in the care of your patient. Dictated and Authenticated by: Delfino Coronado MD 03/20/2020 9:14 PM Central Time ([place] & [place]) [facility]
== END 2020-03-20 22:36 ==
LOC: JD.ED 16:35
DX: U07.1 COVID-19 (principal); J12.89 Other viral pneumonia; K81.9 Cholecystitis, unspecified; I25.10 Atherosclerotic heart disease of native coronary artery without angina pectoris; E78.00 Pure hypercholesterolemia, unspecified; I10 Essential (primary) hypertension; I25.2 Old myocardial infarction; Z79.82 Long term (current) use of aspirin; Z79.899 Other long term (current) drug therapy; M19.90 Unspecified osteoarthritis, unspecified site; Z88.8 Allergy status to other drugs, medicaments and biological substances; Z88.1 Allergy status to other antibiotic agents; Z88.2 Allergy status to sulfonamides; Z95.5 Presence of coronary angioplasty implant and graft; Z87.891 Personal history of nicotine dependence
CPT/HCPCS: 36415; 71045; 71275; 80053; 82728; 83605; 83615; 85025; 85379; 85610; 85730; 86140; 87040; 87635; 96365; 96375; 99285; J0696; J1100; J2405; J7050; Q9967; U0002

== ENCOUNTER 2020-06-29 13:08 | Emergency (ER) | payer OTHER, MEDICARE, BC ==
[2020-06-29] MEDS ORDERED: Tenecteplase 50 MG Kit ONE ×2 (13:15→13:29)
[2020-06-29] MEDS ORDERED: Tenecteplase 50 MG Kit IV STA (13:20)
[2020-06-29] MEDS ORDERED: Sodium Chloride 0.9% 10 ML Syringe FLUSH PRN (13:20)
[2020-06-29] MEDS ORDERED: Heparin Sodium 5,000 Units/ML Vial IVPUSH ONE (13:28)
[2020-06-29] MEDS ORDERED: Heparin Sodium/D5W 25,000 UNITS/500 ML BAG IV SCH (13:30)
[2020-06-29] MEDS ORDERED: Ticagrelor 90 MG Tab PO ONE (13:30)
[2020-06-29] MEDS ORDERED: LORazepam 2 MG/ML SDV IVPUSH ONE (13:33)
[2020-06-29] MEDS ORDERED: Ondansetron 4 MG/2 ML SDV ONE (13:42)
--- NOTE | 2020-06-29 13:51 | EDM.PDOC ---
ED HPI GENERAL MEDICAL PROBLEM - General Chief Complaint: Chest Pain Stated Complaint: [facility] Time Seen by Provider: 06/29/20 13:17 Source of Information: Reports: Patient, EMS History Limitations: Reports: No Limitations - History of Present Illness INITIAL COMMENTS - FREE TEXT/NARRATIVE: The patient present by [facility] for chest pain. The patient has a history of coronary artery disease. He had stents back in 2005. He recently had a stress test and did not do well on it. He had stents in his RCA on Friday of this week. He was discharged yesterday. He has been taking his medications. He is on oxygen at night and as needed during the day. He had lunch and after that he developed mid sternal chest pain with shortness of breath. He has no fever, chills, cough, nausea or vomiting. He says his abdomen does feel bloated. EMS did give him nitro and aspirin on the way. He says the pain is better but not gone. Onset: Sudden Duration: Minutes: Location: Reports: Chest Quality: Reports: Pressure, Sharp Severity: Mild Improves with: Reports: None Worsens with: Reports: None Associated Symptoms: Reports: Chest Pain, Shortness of Breath. Denies: Cough, Fever/Chills, Headaches, Nausea/Vomiting - Related Data Allergies Allergy/AdvReac Type Severity Reaction Status Date / Time VARSHA Inhibitors Allergy Severe Rash Verified 03/20/20 16:56 sulfamethoxazole Allergy Severe Rash Verified 03/20/20 16:56 [From Bactrim] trimethoprim [From Bactrim] Allergy Severe Rash Verified 03/20/20 16:56 Home Meds: Home Meds Cholecalciferol (Vitamin D3) [Vitamin D3] 5,000 unit PO DAILY 02/12/19 [History] Folic Acid 1 mg PO DAILY 02/12/19 [History] Multivitamin [Multi-Vitamin Daily] 1 tab PO DAILY 02/12/19 [History] Nitroglycerin [Nitrostat] 0.4 mg SL ASDIRECTED PRN 02/12/19 [History] atorvaSTATin [Lipitor] 40 mg PO BEDTIME 02/12/19 [History] Aspirin [Aspirin EC] 1 tab PO DAILY 03/20/20 [History] Azithromycin [Zithromax] 1 tab PO DAILY 03/20/20 [History] Doxazosin Mesylate [Cardura] 1 tab PO DAILY 03/20/20 [History] FLUoxetine [PROzac] 20 mg PO DAILY 03/20/20 [History] Famotidine [Pepcid] 1 tab PO DAILY 03/20/20 [History] Mometasone Furoate [Asmanex] 1 puff INH TID 03/20/20 [History] Montelukast Sodium [Singulair] 1 tab PO DAILY 03/20/20 [History] Vit C/E/Zn/Coppr/Lutein/Zeaxan [Preservision Areds 2 Softgel] 1 tab PO DAILY 03/20/20 [History] dexAMETHasone [Dexamethasone] 1 tab PO ASDIRECTED 03/20/20 [History] traZODone HCl [Trazodone HCl] 50 mg PO BEDTIME 03/20/20 [History] Past Medical History HEENT History: Reports: Hard of Hearing, Impaired Vision, Other (See Below) Other HEENT History: Bilateral hearing aides Cardiovascular History: Reports: CAD, High Cholesterol, Hypertension, [place], Stents Respiratory History: Reports: None Gastrointestinal History: Reports: Hemorrhoids Genitourinary History: Reports: Prostate Disorder Musculoskeletal History: Reports: Arthritis Other Musculoskeletal History: Lumbar back pain Neurological History: Reports: None Psychiatric History: Reports: None Endocrine/Metabolic History: Reports: None Hematologic History: Reports: None Immunologic History: Reports: None Oncologic (Cancer) History: Reports: Other (See Below) Other Oncologic History: Skin CA? Dermatologic History: Reports: None - Infectious Disease History Infectious Disease History: Reports: Novel Coronavirus - Past Surgical History Other Cardiovascular Surgeries/Procedures: Angiogram Respiratory Surgical History: Reports: None GI Surgical History: Reports: Appendectomy, Colonoscopy, Other (See Below) Other GI Surgeries/Procedures: Hemorrhoidectomy Male Surgical History: Reports: None Endocrine Surgical History: Reports: None Neurological Surgical History: Reports: None Musculoskeletal Surgical History: Reports: Hip Replacement Oncologic Surgical History: Reports: None Dermatological Surgical History: Reports: None Social & Family History - Caffeine Use Caffeine Use: Reports: Coffee ED ROS GENERAL - Review of Systems Review Of Systems: See Below Constitutional: Reports: No Symptoms HEENT: Reports: No Symptoms Respiratory: Reports: Shortness of Breath Cardiovascular: Reports: Chest Pain Endocrine: Reports: No Symptoms GI/Abdominal: Reports: Abdominal Pain. Denies: Nausea, Vomiting ED EXAM, GENERAL - Physical Exam Exam: See Below Exam Limited By: No Limitations General Appearance: Alert, No Apparent Distress Ears: Normal External Exam Nose: Normal Inspection Head: Atraumatic, Normocephalic Neck: Normal Inspection Respiratory/Chest: No Respiratory Distress, Lungs Clear, Normal Breath Sounds Cardiovascular: Regular Rate, Rhythm, No Edema, No Murmur GI/Abdominal: Soft, Non-Tender, No Organomegaly, No Mass Back Exam: Normal Inspection Extremities: Normal Inspection Neurological: Alert, Oriented, No Motor/Sensory Deficits #1 Interpretation EKG Date: 06/29/20 Time: 13:12 Rhythm: NSR Rate (Beats/Min): 83 [place]: Normal P-Wave: Present QRS: RBBB ST-T: Elevated (Inferior leads consistant with a STEMI) QT: Normal Course - Orders/Labs/Meds Orders: Active Orders 24 hr Category Date Time Status Cardiac Monitoring [RC] . DIRECTED Care 06/29/20 13:24 Active EKG Documentation Completion [RC] STAT Care 06/29/20 13:25 Active Oxygen Therapy [RC] PRN Care 06/29/20 13:24 Active Peripheral IV Care [RC] . DIRECTED Care 06/29/20 13:25 Active Chest 1V Frontal [CR] Stat Exams 06/29/20 13:25 Taken CBC WITH AUTO DIFF [HEME] Stat Lab 06/29/20 13:30 Received COMPREHENSIVE METABOLIC PN,CMP [CHEM] Stat Lab 06/29/20 13:30 Received TROPONIN I [CHEM] Stat Lab 06/29/20 13:30 Received Heparin Sodium/D5W [Heparin 25,000 Units in D5W 500 ML] Med 06/29/20 13:30 Active 25,000 units in 500 ml IV TITRATE Sodium Chloride 0.9% [Saline Flush] Med 06/29/20 13:20 Active 10 ml FLUSH ASDIRECTED PRN Peripheral IV Insertion Adult [OM.PC] Stat Oth 06/29/20 13:20 Ordered Medication Orders Heparin Sodium/Dextrose (Heparin 25,000 Units In D5w 500 Ml) 25,000 units in 500 mls @ 20 mls/hr IV TITRATE [place]; Protocol Sodium Chloride (Saline Flush) 10 ml FLUSH ASDIRECTED PRN PRN Reason: Keep Vein Open Meds: Medications Generic Name Dose Route Start Last Admin Trade Name Freq PRN Reason Stop Dose Admin Heparin Sodium/Dextrose 25,000 units in 500 mls @ 20 mls/hr 06/29/20 13:30 Heparin 25,000 Units In D5w 500 Ml IV TITRATE [place] Protocol 10 UNITS/KG/HR Sodium Chloride 10 ml 06/29/20 13:20 Saline Flush FLUSH ASDIRECTED PRN Keep Vein Open Discontinued Medications Generic Name Dose Route Start Last Admin Trade Name Freq PRN Reason Stop Dose Admin Heparin Sodium (Porcine) 5,000 units 06/29/20 13:28 Heparin Sodium IVPUSH 06/29/20 13:29 .BOLUS ONE Lorazepam 0.5 mg 06/29/20 13:33 Ativan IVPUSH 06/29/20 13:34 ONETIME ONE Tenecteplase Confirm 06/29/20 13:15 Tnkase Administered 06/29/20 13:16 Dose 50 mg .ROUTE .STK-MED ONE Tenecteplase Confirm 06/29/20 13:29 Tnkase Administered 06/29/20 13:30 Dose 50 mg .ROUTE .STK-MED ONE Ticagrelor 180 mg 06/29/20 13:30 Brilinta PO 06/29/20 13:31 ONETIME ONE - Re-Assessments/Exams Free Text/Narrative Re-Assessment/Exam: 06/29/20 13:55 I ordered oxygen PRN, IV saline lock, EKG, CXR, labs and TnKase. His EKG shows a RBBB with ST elevation in the inferior leads. I also ordered a heparin bolus and drip. I called [facility] in [place] and talked with Dr Garg and he agreed to the transfer. 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 He wanted Brilinta to be given. I ordered 180mg PO. 06/29/20 13:57 His rhythm strip showed some changes. I got another EKG and it looks like he lost his p waves and his QRS has widened. He did get nauseated and his BP did go up. I gave him some zofran and his BP went back down. He feels better. I requested [facility] flight crew and they are here to transport. Departure - Departure Time of Disposition: 14:00 Disposition: DC/Tfer to Acute Hospital 02 Reason for Transfer *Q: Primary PCI Indicated Condition: Serious Clinical Impression: STEMI (ST elevation myocardial infarction) Qualifiers: Involved coronary artery: right coronary artery Qualified Code(s): I21.11 - ST elevation (STEMI) myocardial infarction involving right coronary artery Referrals: Jazz Contreras MD [Primary Care Provider] - - My Orders Last 24 Hours: My Active Orders 06/29/20 13:20 Sodium Chloride 0.9% [Saline Flush] 10 ml FLUSH ASDIRECTED PRN Peripheral IV Insertion Adult [OM.PC] Stat 06/29/20 13:24 Cardiac Monitoring [RC] . DIRECTED Oxygen Therapy [RC] PRN 06/29/20 13:25 EKG Documentation Completion [RC] STAT Peripheral IV Care [RC] . DIRECTED Chest 1V Frontal [CR] Stat 06/29/20 13:30 CBC WITH AUTO DIFF [HEME] Stat COMPREHENSIVE METABOLIC PN,CMP [CHEM] Stat TROPONIN I [CHEM] Stat Heparin Sodium/D5W [Heparin 25,000 Units in D5W 500 ML] 25,000 units in 500 ml IV TITRATE - Assessment/Plan Last 24 Hours: My Active Orders 06/29/20 13:20 Sodium Chloride 0.9% [Saline Flush] 10 ml FLUSH ASDIRECTED PRN Peripheral IV Insertion Adult [OM.PC] Stat 06/29/20 13:24 Cardiac Monitoring [RC] . DIRECTED Oxygen Therapy [RC] PRN 06/29/20 13:25 EKG Documentation Completion [RC] STAT Peripheral IV Care [RC] . DIRECTED Chest 1V Frontal [CR] Stat 06/29/20 13:30 CBC WITH AUTO DIFF [HEME] Stat COMPREHENSIVE METABOLIC PN,CMP [CHEM] Stat TROPONIN I [CHEM] Stat Heparin Sodium/D5W [Heparin 25,000 Units in D5W 500 ML] 25,000 units in 500 ml IV TITRATE
--- NOTE | 2020-06-29 14:33 | CR ---
Chest: Portable view of the chest was obtained. Comparison: Prior chest x-ray of 03/16/20. Upper mediastinum is normal. Heart is slightly enlarged but accentuated by portable technique. Central lung markings are slightly increased. No definite acute osseous finding is seen. Impression: 1. Central lung markings are slightly increased, which is an interval change from previous exam. Difficult to exclude mild pulmonary vascular congestion. 2. Heart size is slightly enlarged but also accentuated from portable technique. Diagnostic code #3
[2020-06-29] MEDS ORDERED: Ondansetron 4 MG/2 ML SDV IVPUSH ONE (14:45)
== END 2020-06-29 13:58 ==
LOC: JD.ED 13:08
DX: I21.11 ST elevation (STEMI) myocardial infarction involving right coronary artery (principal); I45.10 Unspecified right bundle-branch block; I25.10 Atherosclerotic heart disease of native coronary artery without angina pectoris; E78.00 Pure hypercholesterolemia, unspecified; I10 Essential (primary) hypertension; I25.2 Old myocardial infarction; M19.90 Unspecified osteoarthritis, unspecified site; Z86.16 Personal history of COVID-19; Z95.5 Presence of coronary angioplasty implant and graft; Z88.8 Allergy status to other drugs, medicaments and biological substances; Z88.2 Allergy status to sulfonamides; Z79.82 Long term (current) use of aspirin; Z79.899 Other long term (current) drug therapy; Z20.822 Contact with and (suspected) exposure to COVID-19
CPT/HCPCS: 36415; 37195; 71045; 80053; 84484; 85025; 87635; 93005; 96365; 96375; 99285; A9270; J1644; J2060; J2405; J3101; 93010; 99284; U0002

== ENCOUNTER 2020-09-15 07:29 | Emergency (ER) | payer OTHER ==
[2020-09-15] MEDS ORDERED: Sodium Chloride 0.9% 10 ML Syringe FLUSH PRN (08:14)
--- NOTE | 2020-09-15 09:02 | CR ---
Chest: Portable upright view of the chest was obtained. Comparison: Prior chest x-ray of 06/29/20. Lung markings are increased but believed to be fairly chronic from prior study. No definite acute parenchymal change is seen within either lung. Heart size and mediastinum are normal. Bony structure shows nothing acute. Impression: 1. Increased lung markings which are believed to be fairly stable from prior exam. 2. Nothing acute is otherwise appreciated. Diagnostic code #2
--- NOTE | 2020-09-15 09:41 | CT ---
Head CT Technique: Multiple axial sections through the brain were obtained. Intravenous contrast was not utilized. Reconstructed coronal and sagittal images were obtained. Comparison: No prior intracranial imaging is available. Findings: Ventricles along with basal cisterns and sulci over the convexities are within normal limits for the patient's age. Minimal diminished density is noted within portions of the periventricular white matter compatible with minimal small vessel ischemic demyelination change. No other abnormal parenchymal densities are seen. No evidence of intracranial hemorrhage. No midline shift or mass-effect is appreciated. Bone window settings were reviewed. Slight nodular mucosal thickening/retention cyst is seen within the left maxillary sinus. Minimal retention cyst within the right maxillary sinus is noted. Paranasal sinuses show no air-fluid levels. Visualized mastoid sinuses show nothing acute. No acute calvarial abnormality is appreciated. Impression: 1. Minimal senescent change. 2. Minimal sinus findings believed to be chronic. 3. Nothing acute is seen on noncontrast head CT exam. Diagnostic code #2
[2020-09-15] MEDS ORDERED: Furosemide 40 MG/4 ML VIAL IVPUSH ONE (09:57)
--- NOTE | 2020-09-15 10:55 | EDM.PDOC ---
<Ang Hammonds M - Last Filed: 09/15/20 11:16> ED HPI GENERAL MEDICAL PROBLEM - General Chief Complaint: Chest Pain Stated Complaint: DIZZINESS X 1 WEEK Time Seen by Provider: 09/15/20 07:45 Source of Information: Reports: Patient History Limitations: Reports: No Limitations - History of Present Illness INITIAL COMMENTS - FREE TEXT/NARRATIVE: Is more short of breath, feels more weekend and condition went golfing yesterday and could not keep up with his friends. History of to 79 stents placed in June for non-STEMI. Is been on Brilinta and baby aspirin a day. He does take Lasix 20 mg once a day losartan 25 mg a day metoprolol 25 mg once a day no recent changes in his medications no increasing weight does not describe any increasing swelling he does note some paroxysmal nocturnal dyspnea and does feel more winded easily when he is up on his feet. No strokelike symptoms such as vision changes no headaches no fainting spell no focal weakness to either upper or lower extremities no balance problems. He denies any lightheadedness diaphoresis does feel occasionally nauseated and has upset epigastric retrosternal area nonradiating does not bother his neck arm or jaw. No spinning or vertigo. Normal urine output no vomiting or diarrhea. Appetites been fairly stable. This patient dictation has been completed by Reece Vanegas MD; all orders have been ordered by Reece Vasquez MD Chest Pain Score (Numeric/FACES): 4 - Related Data Allergies Allergy/AdvReac Type Severity Reaction Status Date / Time VARSHA Inhibitors Allergy Intermediate Rash Verified 09/15/20 11:04 sulfamethoxazole Allergy Intermediate Rash Verified 09/15/20 11:04 [From Bactrim] trimethoprim [From Bactrim] Allergy Intermediate Rash Verified 09/15/20 11:04 Home Meds: Home Meds Cholecalciferol (Vitamin D3) [Vitamin D3] 5,000 unit PO DAILY 02/12/19 [History] Folic Acid 1 mg PO DAILY 02/12/19 [History] Multivitamin [Multi-Vitamin Daily] 1 tab PO DAILY 02/12/19 [History] Nitroglycerin [Nitrostat] 0.4 mg SL ASDIRECTED PRN 02/12/19 [History] atorvaSTATin [Lipitor] 40 mg PO BEDTIME 10/18/19 [History] Aspirin [Aspirin EC] 1 tab PO DAILY 03/20/20 [History] Azithromycin [Zithromax] 1 tab PO DAILY 03/20/20 [History] Doxazosin Mesylate [Cardura] 1 tab PO DAILY 03/20/20 [History] FLUoxetine [PROzac] 20 mg PO DAILY 03/20/20 [History] Famotidine [Pepcid] 1 tab PO DAILY 03/20/20 [History] Mometasone Furoate [Asmanex] 1 puff INH TID 03/20/20 [History] Montelukast Sodium [Singulair] 1 tab PO DAILY 03/20/20 [History] Vit C/E/Zn/Coppr/Lutein/Zeaxan [Preservision Areds 2 Softgel] 1 tab PO DAILY 03/20/20 [History] dexAMETHasone [Dexamethasone] 1 tab PO ASDIRECTED 03/20/20 [History] traZODone HCl [Trazodone HCl] 50 mg PO BEDTIME 03/20/20 [History] Past Medical History HEENT History: Reports: Hard of Hearing, Impaired Vision, Other (See Below) Other HEENT History: Bilateral hearing aides Cardiovascular History: Reports: CAD, High Cholesterol, Hypertension, [place], Stents Respiratory History: Reports: Pneumonia, Recurrent, Other (See Below) Other Respiratory History: +) COVID Gastrointestinal History: Reports: Hemorrhoids Genitourinary History: Reports: Prostate Disorder Musculoskeletal History: Reports: Arthritis Other Musculoskeletal History: Lumbar back pain Neurological History: Reports: None Psychiatric History: Reports: Depression Endocrine/Metabolic History: Reports: None Hematologic History: Reports: None Immunologic History: Reports: None Oncologic (Cancer) History: Reports: Other (See Below) Other Oncologic History: Skin CA? Dermatologic History: Reports: None - Infectious Disease History Infectious Disease History: Reports: Novel Coronavirus - Past Surgical History Cardiovascular Surgical History: Reports: Coronary Artery Stent Other Cardiovascular Surgeries/Procedures: Angiogram GI Surgical History: Reports: Appendectomy, Colonoscopy, Other (See Below) Other GI Surgeries/Procedures: Hemorrhoidectomy Musculoskeletal Surgical History: Reports: Hip Replacement Social & Family History - Tobacco Use Tobacco Use Status *Q: Former Tobacco User Years of Tobacco use: 15 Packs/Tins Daily: 2 Used Tobacco, but Quit: Yes Month/Year Tobacco Last Used: Apr 1980 - Caffeine Use Caffeine Use: Reports: Coffee, Soda - Recreational Drug Use Recreational Drug Use: No ED ROS GENERAL - Review of Systems Constitutional: Reports: Weakness, Fatigue. Denies: Fever, Chills, Night Sweats, Diaphoresis, Weight Gain HEENT: Denies: Vision Change Respiratory: Reports: Shortness of Breath. Denies: Wheezing, Pleuritic Chest Pain, Cough, Sputum, Hemoptysis (History of Covid) Cardiovascular: Reports: Chest Pain, Dyspnea on Exertion, PND. Denies: Blood Pressure Problem, Edema, Lightheadedness, Palpitations, Syncope Endocrine: Reports: Fatigue GI/Abdominal: Reports: Nausea. Denies: Abdominal Pain, Diarrhea, Vomiting : Denies: Dysuria, Frequency, Urgency Neurological: Reports: Dizziness. Denies: Numbness, Paresthesia, Tingling, Juan mors, Trouble Speaking, Difficulty Walking, Change in Speech, Gait Disturbance Psychiatric: Reports: No Symptoms ED EXAM, GENERAL - Physical Exam Exam Limited By: No Limitations General Appearance: Alert, WD/WN, No Apparent Distress Eye Exam: Bilateral Eye: EOMI, PERRL Throat/Mouth: Normal Inspection Head: Atraumatic, Normocephalic Neck: Normal Inspection. No: Carotid Bruit Respiratory/Chest: No Respiratory Distress, Lungs Clear, Normal Breath Sounds, Chest Non-Tender. No: Decreased Breath Sounds Cardiovascular: Normal Peripheral Pulses, Regular Rate, Rhythm, No Edema, No Gallop, No JVD Peripheral Pulses: 2+: Radial (L), Radial (R) GI/Abdominal: Normal Bowel Sounds, Soft, Non-Tender, No Distention, No Abnormal Bruit Extremities: Normal Inspection, Normal Range of Motion, No Pedal Edema Neurological: Alert, Oriented, CN II-XII Intact, Normal Cognition, Normal Gait, No Motor/Sensory Deficits Psychiatric: Normal Affect #1 Interpretation EKG Date: 09/15/20 Rhythm: NSR [place]: Normal P-Wave: Present QRS: Normal ST-T: Depressed QT: Normal Comparison: No Change EKG Interpretation Comments: I reviewed the EKG showing normal sinus rhythm, right bundle branch block [place] noted ST depression noted in the V3 through 6 which is improved since his last EKG of June 29, 2020 no other acute ischemic changes are noted. Course - Vital Signs Text/Narrative:: Patient is she is seen and evaluate EKG chest x-ray labs ordered. No current chest pain when he first arrived. Did not notice any weight gain however rule out for CHF, acute coronary syndrome doubt PE, seems unlikely abdominal although he does complain of some upset stomach we will screen him for pancreatitis gastritis, seems less likely acute cholecystitis no increasing salty foods or any acute changes. Reevaluation and review of history patient does feel like he is just not thinking quite as clearly as well as having the general weakness and is concerned that his brother older brother had a stroke and currently his NIH stroke scale 0 however with his concerning symptoms and over the last 24+ hours with the symptoms have ordered a CT head noncontrast scan which comes back negative. His BNP is elevated at 1300, last BNP was normal at 268 back in June. Suspect CHF exacerbation chest x-ray shows some chronic interstitial type c hanges nothing that looks acute no pleural effusion his kidney function is stable for now his potassium is also stable we will give him an extra dose of Lasix 40 mg IV will have him double up on his Lasix for the next 2 days over the weekend and recheck with his primary care on Friday. Otherwise patient given return precautions to include returning if any increasing chest pain lightheadedness fainting spells sweats vomiting increasing work of breathing or any worsening symptoms. Departure - Departure Disposition: Home, Self-Care 01 Condition: Fair Clinical Impression: CHF exacerbation Instructions: Heart Failure, Self Care, Nonspecific Chest Pain, Adult, [id number] Referrals: Jazz Contreras MD [Primary Care Provider] - Forms: ED Department Discharge Additional Instructions: Increase your Lasix 20 mg 2 daily in the morning for the next 2 more days. Recommend following up with your primary care physician next week on Friday or Friday. Monitor your weight tomorrow and daily and record. Return to the emergency department with any increasing chest pain, increasing shortness of breath, lightheadedness dizziness weakness or any worsening symptoms. Sepsis Event Note (ED) - Evaluation Sepsis Screening Result: No Definite Risk <Reece Vanegas - Last Filed: 09/15/20 14:46> ED HPI GENERAL MEDICAL PROBLEM - General Source of Information: Reports: Patient History Limitations: Reports: No Limitations ED ROS GENERAL - Review of Systems Review Of Systems: See Below ED EXAM, GENERAL - Physical Exam Exam: See Below Exam Limited By: No Limitations General Appearance: Alert, WD/WN, No Apparent Distress Course - Vital Signs Last Recorded V/S: Last Vital Signs Temp 97.2 F 09/15/20 11:35 Pulse 59 L 09/15/20 11:35 Resp 14 09/15/20 11:35 BP 158/76 H 09/15/20 11:35 Pulse Ox 98 09/15/20 11:35 - Orders/Labs/Meds Orders: Active Orders 24 hr Category Date Time Status Peripheral IV Insertion Adult [OM.PC] Routine Oth 09/15/20 08:14 Ordered EKG 12 Lead [EK] Stat Ther 09/15/20 07:42 Ordered Labs: Laboratory Tests 09/15/20 09/15/20 09/15/20 Range/Units 07:47 07:47 07:47 WBC 11.74 H (4.23-9.07) K/mm3 RBC 4.71 (4.63-6.08) M/mm3 Hgb 14.2 (13.7-17.5) gm/dl Hct 43.3 (40.1-51.0) % MCV 91.9 (79.0-92.2) fl MCH 30.1 (25.7-32.2) pg MCHC 32.8 (32.2-35.5) g/dl RDW Std Deviation 45.2 H (35.1-43.9) fL Plt Count 260 (163-337) K/mm3 MPV 9.5 (9.4-12.3) fl Neut % (Auto) 77.7 H (34.0-67.9) % Lymph % (Auto) 10.3 L (21.8-53.1) % [place] % (Auto) 10.1 (5.3-12.2) % Eos % (Auto) 1.4 (0.8-7.0) Baso % (Auto) 0.2 (0.1-1.2) % Neut # (Auto) 9.11 H (1.78-5.38) K/mm3 Lymph # (Auto) 1.21 L (1.32-3.57) K/mm3 [place] # (Auto) 1.19 H (0.30-0.82) K/mm3 Eos # (Auto) 0.17 (0.04-0.54) K/mm3 Baso # (Auto) 0.02 (0.01-0.08) K/mm3 Sodium 140 (136-145) mEq/L Potassium 4.3 (3.5-5.1) mEq/L Chloride 105 (98-107) mEq/L Carbon Dioxide 25 (21-32) mEq/L Anion Gap 14.3 (5-15) BUN 21 H (7-18) mg/dL Creatinine 1.2 (0.7-1.3) mg/dL Est Cr Clr Drug Dosing 58.38 mL/min Estimated GFR (MDRD) 59 (>60) mL/min BUN/Creatinine Ratio 17.5 (14-18) Glucose 101 H (70-99) mg/dL Calcium 9.3 (8.5-10.1) mg/dL Total Bilirubin 1.0 (0.2-1.0) mg/dL AST 29 (15-37) U/L ALT 38 (16-63) U/L Alkaline Phosphatase 96 (46-116) U/L Troponin I < 0.017 (0.00-0.056) ng/mL C-Reactive Protein 1.1 H* (<1.0) mg/dL NT-Pro-B Natriuret Pep 1398 H (0-450) pg/mL Total Protein 7.7 (6.4-8.2) g/dl Albumin 4.0 (3.4-5.0) g/dl Globulin 3.7 gm/dL Albumin/Globulin Ratio 1.1 (1-2) Lipase 113 (73-393) U/L Meds: Medications Discontinued Medications Generic Name Dose Route Start Last Admin Trade Name Freq PRN Reason Stop Dose Admin Furosemide 40 mg 09/15/20 09:57 09/15/20 10:04 Furosemide 40 Mg/4 Ml Vial IVPUSH 09/15/20 09:58 40 mg NOW ONE Administration Sodium Chloride 10 ml 09/15/20 08:14 09/15/20 07:37 Sodium Chloride 0.9% 10 Ml Syringe FLUSH 10 ml ASDIRECTED PRN Administration Keep Vein Open Departure - Departure Time of Disposition: 12:45 Sepsis Event Note (ED) - Focused Exam Vital Signs: Vital Signs Temp Pulse Resp BP Pulse Ox 09/15/20 11:35 97.2 F 59 L 14 158/76 H 98 09/15/20 10:50 97.2 F 56 L 20 198/76 H 98 09/15/20 07:40 97.5 F 70 18 188/79 H 97 - My Orders Last 24 Hours: My Active Orders 09/15/20 07:42 EKG 12 Lead [EK] Stat 09/15/20 08:14 Peripheral IV Insertion Adult [OM.PC] Routine - Assessment/Plan Last 24 Hours: My Active Orders 09/15/20 07:42 EKG 12 Lead [EK] Stat 09/15/20 08:14 Peripheral IV Insertion Adult [OM.PC] Routine
== END 2020-09-15 11:40 | disposition home or self-care (01) ==
LOC: SUPCPDRO 07:29 → JD.ED 07:29
DX: I11.0 Hypertensive heart disease with heart failure (principal); I50.9 Heart failure, unspecified; I25.10 Atherosclerotic heart disease of native coronary artery without angina pectoris; E78.00 Pure hypercholesterolemia, unspecified; I25.2 Old myocardial infarction; Z95.5 Presence of coronary angioplasty implant and graft; Z79.82 Long term (current) use of aspirin; Z79.899 Other long term (current) drug therapy; Z88.8 Allergy status to other drugs, medicaments and biological substances; Z88.1 Allergy status to other antibiotic agents; Z86.16 Personal history of COVID-19; Z87.891 Personal history of nicotine dependence
CPT/HCPCS: 36415; 70450; 71045; 80053; 83690; 83880; 84484; 85025; 86140; 93005; 96374; 99285; J1940; 93010; 99284

== ENCOUNTER 2022-06-06 17:49 | Emergency (ER) | payer BC, OTHER ==
[2022-06-06] MEDS ORDERED: Ondansetron 4 MG/2 ML SDV IVPUSH ONE (18:47)
[2022-06-06] MEDS ORDERED: Sodium Chloride 0.9% 10 ML Syringe FLUSH PRN (18:48)
[2022-06-06 19:44] LABS: CORONAVIRUS COVID-19 NAA NEGATIVE (NEGATIVE)
== END 2022-06-06 20:50 | disposition home or self-care (01) ==
LOC: JD.ED 17:49
DX: J10.1 Influenza due to other identified influenza virus with other respiratory manifestations (principal); I25.2 Old myocardial infarction; I10 Essential (primary) hypertension; E78.00 Pure hypercholesterolemia, unspecified; Z88.1 Allergy status to other antibiotic agents; Z88.2 Allergy status to sulfonamides; Z88.8 Allergy status to other drugs, medicaments and biological substances
CPT/HCPCS: 0241U; 36415; 80053; 82947; 85025; 86140; 96374; 99284; J2405; J3490; 93010

== ENCOUNTER 2022-06-07 03:43 | Inpatient (IN) | payer OTHER ==
[2022-06-07] MEDS ORDERED: Sodium Chloride 0.9% 10 ML Syringe FLUSH PRN (04:15)
[2022-06-07] MEDS ORDERED: Sodium Chloride 0.9% 1,000 ML IV SCH (04:30)
[2022-06-07] MEDS ORDERED: Albuterol/Ipratropium 3.0-0.5 MG/3 ML Neb Soln NEB ONE (06:11)
[2022-06-07] MEDS ORDERED: Albuterol 0.5% 2.5 MG/0.5 ML Neb Soln NEB PRN (13:55)
[2022-06-07] MEDS ORDERED: Metoprolol Tartrate 25 MG Tab PO SCH (14:00)
[2022-06-07] MEDS ORDERED: TICAGRELOR 60 MG PO SCH (14:00)
[2022-06-07] MEDS: Albuterol 0.083% 2.5 MG/3 ML Neb Soln NEB SCH ×2 (15:06→21:08)
[2022-06-07] MEDS: Ipratropium 0.02% 0.5 MG/2.5 ML Neb Soln NEB SCH ×2 (15:07→21:08)
[2022-06-07] MEDS: methylPREDNISolone Sodium Succinate 40 MG/1 ML SDV IVPUSH SCH (17:29)
[2022-06-07] MEDS: Diclofenac Sodium 1% Gel 100 GM Tube TOP SCH ×2 (17:29→23:09)
[2022-06-07] MEDS: atorvaSTATin 40 MG Tab PO SCH (20:21)
[2022-06-07] MEDS: Metoprolol Tartrate 25 MG Tab PO SCH (20:21)
[2022-06-07] MEDS: Famotidine 20 MG Tab PO SCH (20:26)
[2022-06-07] MEDS: Doxycycline 100 MG in Sodium Chloride 0.9% 100 ML IV SCH (20:26)
[2022-06-07] MEDS ORDERED: Oseltamivir 30 MG Cap PO SCH (21:00)
[2022-06-08] MEDS: Albuterol 0.083% 2.5 MG/3 ML Neb Soln NEB SCH ×4 (06:18→20:54)
[2022-06-08] MEDS: Ipratropium 0.02% 0.5 MG/2.5 ML Neb Soln NEB SCH ×3 (09:00→20:54)
[2022-06-08] MEDS: Metoprolol Tartrate 25 MG Tab PO SCH ×2 (09:26→20:39)
[2022-06-08] MEDS: methylPREDNISolone Sodium Succinate 40 MG/1 ML SDV IVPUSH SCH (09:26)
[2022-06-08] MEDS: Oseltamivir 75 MG Cap PO SCH ×2 (09:26→20:38)
[2022-06-08] MEDS: Diclofenac Sodium 1% Gel 100 GM Tube TOP SCH ×4 (09:28→20:40)
[2022-06-08] MEDS: Enoxaparin 40 MG/0.4 ML Syringe SUBCUT SCH (09:28)
[2022-06-08] MEDS: Doxycycline 100 MG in Sodium Chloride 0.9% 100 ML IV SCH ×2 (09:28→20:40)
[2022-06-08] MEDS: TICAGRELOR 60 MG PO SCH ×2 (20:28→20:40)
[2022-06-08] MEDS: atorvaSTATin 40 MG Tab PO SCH (20:38)
[2022-06-08] MEDS: Famotidine 20 MG Tab PO SCH (20:39)
[2022-06-09] MEDS: Albuterol 0.083% 2.5 MG/3 ML Neb Soln NEB SCH ×2 (06:23→09:37)
[2022-06-09] MEDS: Oseltamivir 75 MG Cap PO SCH (09:26)
[2022-06-09] MEDS: Metoprolol Tartrate 25 MG Tab PO SCH (09:26)
[2022-06-09] MEDS: Enoxaparin 40 MG/0.4 ML Syringe SUBCUT SCH (09:26)
[2022-06-09] MEDS: Diclofenac Sodium 1% Gel 100 GM Tube TOP SCH ×2 (09:27→12:10)
[2022-06-09] MEDS: Doxycycline 100 MG in Sodium Chloride 0.9% 100 ML IV SCH (09:27)
[2022-06-09] MEDS: TICAGRELOR 60 MG PO SCH (09:27)
[2022-06-09] MEDS: methylPREDNISolone Sodium Succinate 40 MG/1 ML SDV IVPUSH SCH (09:27)
[2022-06-09] MEDS: Ipratropium 0.02% 0.5 MG/2.5 ML Neb Soln NEB SCH (09:38)
== END 2022-06-09 13:44 | disposition home or self-care (01) | DRG 193 ==
LOC: JD.ED 03:43 → JD.MS 09:21
PROVIDERS: ADMIT Internal Medicine Cardiovascular Disease; ATTEND Internal Medicine Cardiovascular Disease
DX: J10.08 Influenza due to other identified influenza virus with other specified pneumonia (principal); J96.01 Acute respiratory failure with hypoxia; J10.1 Influenza due to other identified influenza virus with other respiratory manifestations; J15.7 Pneumonia due to Mycoplasma pneumoniae; H91.90 Unspecified hearing loss, unspecified ear; I10 Essential (primary) hypertension; R09.02 Hypoxemia; E86.0 Dehydration; I25.10 Atherosclerotic heart disease of native coronary artery without angina pectoris; E78.00 Pure hypercholesterolemia, unspecified; H54.7 Unspecified visual loss; Z90.49 Acquired absence of other specified parts of digestive tract; Z88.2 Allergy status to sulfonamides; Z88.8 Allergy status to other drugs, medicaments and biological substances; Z88.1 Allergy status to other antibiotic agents; I25.2 Old myocardial infarction; Z79.899 Other long term (current) drug therapy; Z86.16 Personal history of COVID-19; Z87.891 Personal history of nicotine dependence; Z95.5 Presence of coronary angioplasty implant and graft; F32.A Depression, unspecified
CPT/HCPCS: 36415; 36600; 71045; 80053; 82803; 85025; 86738; 94640; 96360; 99285; J3490; J7030; 97161-GP; 99222; 99232; 99239; A9270-GY; J1650; J2920; J7620-GY

== ENCOUNTER 2022-10-24 06:00 | Emergency (ER) | payer OTHER ==
[2022-10-24] MEDS ORDERED: Sodium Chloride 0.9% 10 ML Syringe FLUSH PRN (07:16)
[2022-10-24] MEDS ORDERED: Sodium Chloride 0.9% 1,000 ML IV SCH (07:30)
[2022-10-24 07:46] LABS: BASOPHILS ABSOLUTE AUTO 0.01 K/mm3 (0.01-0.08); BASOPHILS PERCENT AUTO 0.1 % (0.1-1.2); EOSINOPHILS ABSOLUTE AUTO 0.06 K/mm3 (0.04-0.54); EOSINOPHILS PERCENT AUTO 0.4 (0.8-7.0); HEMATOCRIT 47.7 % (40.1-51.0); HEMOGLOBIN 15.9 gm/dl (13.7-17.5); IMMATURE GRAN ABSOLUTE AUTO 0.03 K/mm3 (0.00-0.10); IMMATURE GRAN PERCENT AUTO 0.2 % (<=1.0); LYMPHOCYTES ABSOLUTE AUTO 1.16 K/mm3 (1.32-3.57); LYMPHOCYTES PERCENT AUTO 7.7 % (21.8-53.1); MEAN CORPUSCULAR HEMOGLOBIN 30.7 pg (25.7-32.2); MEAN CORPUSCULAR HGB CONC 33.3 g/dl (32.2-35.5); MEAN CORPUSCULAR VOLUME 92.1 fl (79.0-92.2); MEAN PLATELET VOLUME 9.8 fl (9.4-12.3); MONOCYTES ABSOLUTE AUTO 1.32 K/mm3 (0.30-0.82); MONOCYTES PERCENT AUTO 8.7 % (5.3-12.2); NEUTROPHILS ABSOLUTE AUTO 12.56 K/mm3 (1.78-5.38); NEUTROPHILS PERCENT AUTO 82.9 % (34.0-67.9); PLATELET COUNT,PLT 254 K/mm3 (163-337); RED BLOOD CELL COUNT 5.18 M/mm3 (4.63-6.08); WHITE BLOOD CELL COUNT,WBC 15.14 K/mm3 (4.23-9.07)
[2022-10-24 08:09] LABS: APPEARANCE,URINE CLEAR (Clear); BILIRUBIN,URINE NEGATIVE (Negative); COLOR,URINE YELLOW (Yellow); GLUCOSE,URINE NEGATIVE (Negative); KETONES,URINE NEGATIVE (Negative); LEUKOCYTE ESTERASE,URINE NEGATIVE (Negative); NITRITE,URINE NEGATIVE (Negative); OCCULT BLOOD,URINE NEGATIVE (Negative); PH,URINE 7.5 (5.0-8.0); PROTEIN,URINE NEGATIVE (Negative); UROBILINOGEN,URINE 0.2 (0.2-1.0)
[2022-10-24 08:19] LABS: BARBITURATE SCREEN,URINE NEGATIVE (CUTOFF=200); BENZODIAZEPINES SCREEN,URINE NEGATIVE (CUTOFF=150); BUPRENORPHINE SCREEN,URINE NEGATIVE (CUTOFF=10); METHADONE SCREEN, URINE NEGATIVE (CUT0FF=200); METHAMPHETAMINES SCREEN, URINE NEGATIVE (CUTOFF=500); OXYCODONE SCREEN,URINE NEGATIVE (CUT0FF=100); PROPOXYPHENE SCREEN,URINE NEGATIVE (CUTOFF=300); THC SCREEN,URINE 20 NG/ML NEGATIVE (CUTOFF=50)
[2022-10-24] MEDS ORDERED: Ketorolac 15 MG/ML SDV IVPUSH ONE (08:20)
[2022-10-24 08:24] LABS: AMPHETAMINES SCREEN, URINE NEGATIVE (CUTOFF=500)
[2022-10-24] MEDS ORDERED: Morphine 2 MG/ML SYRINGE IVPUSH ONE (08:28)
[2022-10-24 08:37] LABS: A/G RATIO 1.1 (1-2); ALANINE AMINOTRANSFERASE,ALT 38 U/L (16-63); ALBUMIN 4.4 g/dl (3.4-5.0); ALKALINE PHOSPHATASE 118 U/L (46-116); ANION GAP 16.3 (5-15); ASPARTATE AMNIOTRANSFERASE,AST 35 U/L (15-37); BILIRUBIN TOTAL 1.2 mg/dL (0.2-1.0); BLOOD UREA NITROGEN,BUN 21 mg/dL (7-18); BUN/CREATININE RATIO 19.1 (14-18); C-REACTIVE PROTEIN <0.2 mg/dL (<1.0); CALCIUM 9.8 mg/dL (8.5-10.1); CARBON DIOXIDE,CO2 25 mEq/L (21-32); CHLORIDE,CL 104 mEq/L (98-107); CREATINE KINASE,CK 288 U/L (39-308); CREATININE 1.1 mg/dL (0.7-1.3); EST CRCL DRUG DOSING (CG) 61.73 mL/min; ESTIMATED GFR 69 mL/min (>60); GLUCOSE RANDOM 103 mg/dL (70-99); MAGNESIUM 2.3 mg/dL (1.8-2.4); POTASSIUM,K 4.3 mEq/L (3.5-5.1); PROTEIN TOTAL,TP 8.3 g/dl (6.4-8.2); SODIUM,NA 141 mEq/L (136-145); TROPONIN I HIGH SENSITIVITY 18 pg/mL (<=76)
[2022-10-24 09:22] LABS: INR 1.04; PROTHROMBIN TIME 11.1 SECONDS (9.7-12.0)
[2022-10-24 09:54] LABS: D-DIMER QUANTITATIVE 0.45 mg/L (0.19-0.50)
[2022-10-24 09:55] LABS: PTT,PARTIAL THROMBOPLSTIN TIME 26.8 SECONDS (21.7-31.4)
== END 2022-10-24 12:37 | disposition home or self-care (01) ==
LOC: JD.ED 06:00
DX: M19.09 Primary osteoarthritis, other specified site (principal); I25.10 Atherosclerotic heart disease of native coronary artery without angina pectoris; E78.00 Pure hypercholesterolemia, unspecified; I10 Essential (primary) hypertension; I25.2 Old myocardial infarction; Z86.16 Personal history of COVID-19; Z79.51 Long term (current) use of inhaled steroids; Z79.899 Other long term (current) drug therapy; Z88.1 Allergy status to other antibiotic agents; Z88.8 Allergy status to other drugs, medicaments and biological substances; Z95.5 Presence of coronary angioplasty implant and graft; Z87.891 Personal history of nicotine dependence
CPT/HCPCS: 36415; 70450; 71045; 73110; 80053; 80306; 81003; 82550; 83735; 83880; 84484; 85025; 85379; 85610; 85652; 85730; 86140; 93005; 93971; 96361; 96374; 99284; J2270; J3490; J7030; 93010

== ENCOUNTER 2023-04-14 08:15 | Day surgery (SDC) | payer OTHER, BC ==
[~2023-04-14 08:15] MED LIST changes: -Acetaminophen 325 MG Tab PO SCH; -Lidocaine 1%/Sod Bicarbonate in NS 8.4% 1 ML Syringe IDERM PRN; +Ofloxacin 0.3% Ophth Soln 5 ML Bottle EYELF SCH; +Polymyxin B/Trimethoprim 10 ML Bottle EYELF SCH; -Pregabalin 25 MG Cap PO SCH; -Sodium Chloride 0.9% 10 ML Syringe FLUSH PRN; +Tetracaine HCl/PF 0.5% 4 ML Bottle EYEBOTH SCH; -oxyCODONE ER 10 MG TAB.ER PO SCH
[2023-04-14] MEDS: Polymyxin B/Trimethoprim 10 ML Bottle EYELF SCH ×4 (09:09→10:28)
[2023-04-14] MEDS: Brimonidine 0.2% Ophth Soln 5 ML Bottle EYELF SCH ×4 (09:12→10:28)
[2023-04-14] MEDS: Phenylephrine 2.5% Ophth Soln 2 ML Bot EYELF SCH ×6 (09:14→10:10)
[2023-04-14] MEDS: Tropicamide 1% Ophth Soln 3 ML Bottle EYELF SCH ×5 (09:16→09:45)
[2023-04-14] MEDS: Proparacaine 0.5% Ophth Soln 15 ML Bottle EYEBOTH SCH ×5 (09:53→10:18)
[2023-04-14] MEDS: Lidocaine 1% PF 2 ML SDV INJECT SCH ×2 (09:56→10:18)
[2023-04-14] MEDS: Pilocarpine 4% Ophth Soln 15 ML Bot EYELF SCH ×2 (09:57→10:28)
[2023-04-14] MEDS: Cefuroxime 10 MG/ML SYRINGE EYELF SCH ×2 (09:57→10:28)
== END 2023-04-14 10:48 | disposition home or self-care (01) ==
LOC: JD.SDS 08:15
PROVIDERS: ATTEND Ophthalmology
DX: H25.813 Combined forms of age-related cataract, bilateral (principal); H40.013 Open angle with borderline findings, low risk, bilateral; H43.813 Vitreous degeneration, bilateral; H35.3131 Nonexudative age-related macular degeneration, bilateral, early dry stage; H11.002 Unspecified pterygium of left eye; H18.413 Arcus senilis, bilateral; E78.00 Pure hypercholesterolemia, unspecified; I10 Essential (primary) hypertension; J44.9 Chronic obstructive pulmonary disease, unspecified; Z87.891 Personal history of nicotine dependence; Z79.899 Other long term (current) drug therapy
CPT/HCPCS: 66984; A9270; C1780; J0697; J3490

== ENCOUNTER 2023-05-22 11:09 | Day surgery (SDC) | payer BC, OTHER ==
[~2023-05-22 11:09] MED LIST changes: +Cefuroxime 10 MG/ML SYRINGE EYERT SCH; +Lidocaine 1% PF 2 ML SDV INJECT SCH; -Ofloxacin 0.3% Ophth Soln 5 ML Bottle EYELF SCH; +Pilocarpine 4% Ophth Soln 15 ML Bot EYERT SCH; -Polymyxin B/Trimethoprim 10 ML Bottle EYELF SCH; -Tetracaine HCl/PF 0.5% 4 ML Bottle EYEBOTH SCH
[2023-05-22] MEDS ORDERED: LORazepam 1 MG Tab PO SCH (11:26)
[2023-05-22] MEDS: Polymyxin B/Trimethoprim 10 ML Bottle EYERT SCH ×3 (11:31→13:28)
[2023-05-22] MEDS: Brimonidine 0.2% Ophth Soln 5 ML Bottle EYERT SCH ×3 (11:46→13:28)
[2023-05-22] MEDS: Phenylephrine 2.5% Ophth Soln 2 ML Bot EYERT SCH ×5 (11:51→13:12)
[2023-05-22] MEDS: Tropicamide 1% Ophth Soln 3 ML Bottle EYERT SCH ×4 (11:59→12:38)
[2023-05-22] MEDS: Tetracaine HCl/PF 0.5% 4 ML Bottle EYEBOTH SCH ×5 (12:51→13:19)
== END 2023-05-22 13:40 ==
LOC: JD.SDS 11:09
PROVIDERS: ATTEND Ophthalmology
DX: H25.811 Combined forms of age-related cataract, right eye (principal); J44.9 Chronic obstructive pulmonary disease, unspecified; I10 Essential (primary) hypertension; E78.00 Pure hypercholesterolemia, unspecified; I25.10 Atherosclerotic heart disease of native coronary artery without angina pectoris; Z95.5 Presence of coronary angioplasty implant and graft; Z96.1 Presence of intraocular lens; Z87.891 Personal history of nicotine dependence; Z79.82 Long term (current) use of aspirin; Z79.899 Other long term (current) drug therapy
CPT/HCPCS: 66984; A9270; J3490; V2632

== ENCOUNTER 2024-03-10 10:45 | Day surgery (SDC) | payer OTHER ==
[~2024-03-10 10:45] MED LIST changes: -Cefuroxime 10 MG/ML SYRINGE EYERT SCH; -Lidocaine 1% PF 2 ML SDV INJECT SCH; -Pilocarpine 4% Ophth Soln 15 ML Bot EYERT SCH; +Sodium Chloride 0.9% 10 ML Syringe FLUSH PRN; +Sodium Chloride 0.9% 10 ML Syringe FLUSH SCH
[2024-03-10] MEDS: Lactated Ringers 1,000 ML IV SCH (11:15)
[2024-03-10] MEDS: Acetaminophen 325 MG Tab PO ONE (11:49)
[2024-03-10] MEDS: Gabapentin 300 MG Cap PO ONE (11:50)
[2024-03-10] MEDS ORDERED: Propofol 200 MG/20 ML SDV ONE (12:07)
[2024-03-10] MEDS ORDERED: Lidocaine 1% 4 ML ONE (12:08)
[2024-03-10] MEDS ORDERED: fentaNYL 100 MCG/2 ML SDV ONE (12:08)
[2024-03-10] MEDS ORDERED: Midazolam 1 MG/ML 2 ML SDV ONE (13:05)
[2024-03-10] MEDS ORDERED: ceFAZolin 2 GM Vial ONE (13:06)
[2024-03-10] MEDS: Bupivacaine 0.5% 30 ML SDV ONE (13:47)
[2024-03-10] MEDS: EPINEPHrine 1 MG/ML SDV ONE (13:47)
[2024-03-10] MEDS: Lidocaine 1% with EPINEPHrine 1:100,000 20 ML MDV ONE (13:47)
== END 2024-03-10 16:00 | disposition home or self-care (01) ==
LOC: JD.SDS 10:45
PROVIDERS: ATTEND Surgery
DX: K42.0 Umbilical hernia with obstruction, without gangrene (principal); I25.10 Atherosclerotic heart disease of native coronary artery without angina pectoris; I10 Essential (primary) hypertension; E78.5 Hyperlipidemia, unspecified; F17.210 Nicotine dependence, cigarettes, uncomplicated; Z95.5 Presence of coronary angioplasty implant and graft; Z79.899 Other long term (current) drug therapy; Z88.2 Allergy status to sulfonamides; Z88.8 Allergy status to other drugs, medicaments and biological substances
CPT/HCPCS: 49592; 93005; A9270; J0171; J0665; J0690; J2250; J2704; J3010; J7120; C1781; J3490

== ENCOUNTER 2024-08-22 09:23 | Emergency (ER) | payer OTHER ==
[2024-08-22 09:58] LABS: BASOPHILS PERCENT AUTO 0.3 % (0.0-1.0); EOSINOPHILS ABSOLUTE AUTO 0.1 K/mm3 (0.0-0.4); EOSINOPHILS PERCENT AUTO 0.4 % (0.0-6.0); HEMATOCRIT 40.2 % (42.0-52.0); HEMOGLOBIN 13.2 gm/dl (14.0-18.0); IMMATURE GRAN ABSOLUTE AUTO 0.04 K/mm3 (0.00-0.05); IMMATURE GRAN PERCENT AUTO 0.4 % (0.0-0.4); LYMPHOCYTES ABSOLUTE AUTO 0.8 K/mm3 (1.0-4.8); LYMPHOCYTES PERCENT AUTO 7.4 % (24.0-44.0); MEAN CORPUSCULAR HEMOGLOBIN 30.4 pg (28.0-32.0); MEAN CORPUSCULAR HGB CONC 32.8 g/dl (32.0-36.0); MEAN CORPUSCULAR VOLUME 92.6 fl (83.0-99.0); MEAN PLATELET VOLUME 9.9 fl (9.4-12.4); MONOCYTES ABSOLUTE AUTO 1.2 K/mm3 (0.0-0.8); MONOCYTES PERCENT AUTO 10.1 % (0.0-8.0); NEUTROPHILS ABSOLUTE AUTO 9.3 K/mm3 (1.8-7.7); NEUTROPHILS PERCENT AUTO 81.4 % (41.0-71.0); PLATELET COUNT,PLT 182 K/mm3 (150-400); RED BLOOD CELL COUNT 4.34 M/mm3 (4.52-5.90); WHITE BLOOD CELL COUNT,WBC 11.38 K/mm3 (3.9-11.3)
[2024-08-22 10:24] LABS: A/G RATIO 0.9 (1-2); ALBUMIN 3.3 g/dl (3.4-5.0); ANION GAP 13.7 (5-15); BILIRUBIN TOTAL 0.9 mg/dL (0.2-1.0); BUN/CREATININE RATIO 11.5 (14-18); CALCIUM 8.8 mg/dL (8.5-10.1); CREATININE 1.3 mg/dL (0.7-1.3); EST CRCL DRUG DOSING (CG) 50.57 mL/min; POTASSIUM,K 3.7 mEq/L (3.5-5.1); PROTEIN TOTAL,TP 6.9 g/dl (6.4-8.2)
[2024-08-22] MEDS: Albuterol/Ipratropium 3.0-0.5 MG/3 ML Neb Soln NEB ONE (10:24)
[2024-08-22] MEDS: guaiFENesin 600 MG Tab.ER PO ONE (11:29)
== END 2024-08-22 11:20 | disposition home or self-care (01) ==
LOC: JD.ED 09:23
DX: J40 Bronchitis, not specified as acute or chronic (principal); I25.10 Atherosclerotic heart disease of native coronary artery without angina pectoris; I25.2 Old myocardial infarction; I10 Essential (primary) hypertension; E78.00 Pure hypercholesterolemia, unspecified; M19.90 Unspecified osteoarthritis, unspecified site; Z86.16 Personal history of COVID-19; Z90.49 Acquired absence of other specified parts of digestive tract; Z87.891 Personal history of nicotine dependence; Z88.2 Allergy status to sulfonamides; Z88.8 Allergy status to other drugs, medicaments and biological substances; Z79.51 Long term (current) use of inhaled steroids; Z79.82 Long term (current) use of aspirin; Z79.899 Other long term (current) drug therapy
CPT/HCPCS: 36415; 71045; 80053; 84484; 85025; 93005; 94640; 99285; J7620; 93010; 99283; A9270-GY